=== PATIENT | male | born 1935 | race Caucasian/White ===

== ENCOUNTER → 2017-09-03 11:18 | Outpatient (CLI) | payer MEDICARE, SELFPAY ==
[2017-09-03 12:37] LABS: Absolute Lymphocyte Count 1.85 X10^3/ul (0.83-4.51); Absolute Neutrophil Count 4.7 X10^3/uL (2.0-7.7); Basophil# 0.02 X10^3/uL; Basophil% 0.3 % (0-1); Eosinophils% 2.6 % (0-5); Hematocrit 46.4 % (40-54); Hemoglobin 15.1 g/dl (13.0-16.5); Lymphocyte # 1.85 X10^3/ul (4.0); Lymphocyte % 24.2 % (19-41); Mean Corp Hgb Conc 32.5 g/gl (32-36); Mean Corpuscular Hgb 31.5 pg (27.0-32.0); Mean Corpuscular Volume 96.7 fL (80-94); Mean Platelet Vol. 9.8 fl (6.2-12.0); Monocyte# 0.88 X10^3/uL; Monocyte% 11.5 % (0-10); Neutrophil # 4.67 X10^3/uL (2.7-7.7); Neutrophil % 61.1 % (47-70); Platelet Count 253 K/mm3 (150-450); RBC Distribution Width CV 12.8 % (11.6-14.6); RBC Distribution Width SD 44.6 fl (35.1-43.9); White Blood Count 7.6 K/mm3 (4.4-11.0)
[2017-09-03 12:39] LABS: POSITIVE COUNT NO; POSITIVE DIFFERENTIAL NO; POSITIVE MORPHOLOGY NO
[2017-09-03 13:04] LABS: AST(SGOT) 12 U/L (15-37); Alanine Aminotransfer ALT/SGPT 20 U/L (16-61); Albumin, Serum 3.4 g/dL (3.2-5.0); Alkaline Phosphatase 77 U/L (45-117); Anion Gap 7 (5-15); BUN 13 mg/dL (7-18); BUN/Creat Ratio 13.4 RATIO (10-20); Calcium,Total 9.1 mg/dL (8.5-10.1); Chloride 98 mmol/L (98-107); Creatinine, Serum 0.97 mg/dL (0.70-1.30); EST Glomerular Filtration Rate 79 mL/min (>60); Est Glom Filt Rate - Afr Amer 95 mL/min (>60); Globulin 3.5 g/dL (2.2-4.2); Glucose 174 mg/dL (74-106); Protein, Total 6.9 g/dL (6.4-8.2); Sodium Level 138 mmol/L (136-145); Thyroid Stim Hormone (TSH) 2.41 uIU/mL (0.358-3.74)
== END ==
PROVIDERS: Family Provider Family Medicine Geriatric Medicine; PCP Family Medicine Geriatric Medicine; Visit Provider Family Medicine Geriatric Medicine
DX: E11.9 Type 2 diabetes mellitus without complications (principal); I10 Essential (primary) hypertension
CPT/HCPCS: 36415; 80053; 84443; 85025

== ENCOUNTER → 2017-12-12 08:08 | Outpatient (CLI) | payer MEDICARE, SELFPAY ==
[2017-12-12 09:27] LABS: AST(SGOT) 10 U/L (15-37); Alanine Aminotransfer ALT/SGPT 13 U/L (16-61); Albumin, Serum 3.2 g/dL (3.2-5.0); Alkaline Phosphatase 57 U/L (45-117); Bilirubin, Direct 0.21 mg/dL (0.00-0.30); Cholesterol 134 mg/dL (200); Globulin 3.1 g/dL (2.2-4.2); High Density Lipoprotein 44 mg/dL; Protein, Total 6.3 g/dL (6.4-8.2); Triglycerides 122 mg/dL; Very Low Density Lipoprotein 24 mg/dL (5-40)
== END ==
PROVIDERS: Family Provider Family Medicine Geriatric Medicine; PCP Family Medicine Geriatric Medicine; Visit Provider Internal Medicine Cardiovascular Disease
DX: E78.5 Hyperlipidemia, unspecified (principal); Z79.899 Other long term (current) drug therapy
CPT/HCPCS: 36415; 80061; 80076

== ENCOUNTER → 2018-03-04 14:20 | Outpatient (CLI) | payer MEDICARE, SELFPAY ==
[2018-03-04 16:13] LABS: Absolute Lymphocyte Count 1.49 X10^3/ul (0.83-4.51); Absolute Neutrophil Count 4.5 X10^3/uL (2.0-7.7); Basophil# 0.03 X10^3/uL; Basophil% 0.4 % (0-1); Eosinophil# 0.27 X10^3/uL; Eosinophils% 3.8 % (0-5); Hematocrit 47.8 % (40-54); Hemoglobin 15.6 g/dl (13.0-16.5); Lymphocyte # 1.49 X10^3/ul (4.0); Lymphocyte % 21.2 % (19-41); Mean Corp Hgb Conc 32.6 g/gl (32-36); Mean Corpuscular Hgb 30.4 pg (27.0-32.0); Mean Corpuscular Volume 93.2 fL (80-94); Monocyte# 0.73 X10^3/uL; Monocyte% 10.4 % (0-10); Neutrophil # 4.49 X10^3/uL (2.7-7.7); Neutrophil % 63.9 % (47-70); Platelet Count 240 K/mm3 (150-450); RBC Distribution Width CV 13.6 % (11.6-14.6); Red Blood Count 5.13 M/mm3 (4.6-6.2)
[2018-03-04 16:14] LABS: POSITIVE COUNT NO; POSITIVE DIFFERENTIAL NO; POSITIVE MORPHOLOGY NO
[2018-03-04 16:29] LABS: Vitamin D,25 Hydroxy 20.7 ng/mL (29.95-100.01)
[2018-03-04 16:41] LABS: AST(SGOT) 14 U/L (15-37); Alanine Aminotransfer ALT/SGPT 18 U/L (16-61); Albumin, Serum 3.5 g/dL (3.2-5.0); Alkaline Phosphatase 82 U/L (45-117); Anion Gap 11 (5-15); BUN 22 mg/dL (7-18); BUN/Creat Ratio 23.8 RATIO (10-20); Calcium,Total 9.4 mg/dL (8.5-10.1); Chloride 104 mmol/L (98-107); Creatinine, Serum 0.92 mg/dL (0.70-1.30); EST Glomerular Filtration Rate 83 mL/min (>60); Est Glom Filt Rate - Afr Amer 100 mL/min (>60); Globulin 3.4 g/dL (2.2-4.2); Glucose 110 mg/dL (74-106); Potassium 4.5 mmol/L (3.5-5.1); Protein, Total 6.9 g/dL (6.4-8.2); Sodium Level 143 mmol/L (136-145); Thyroid Stim Hormone (TSH) 2.51 uIU/mL (0.358-3.74)
== END ==
PROVIDERS: Family Provider Family Medicine Geriatric Medicine; PCP Family Medicine Geriatric Medicine; Visit Provider Family Medicine Geriatric Medicine
DX: E11.9 Type 2 diabetes mellitus without complications (principal); I10 Essential (primary) hypertension; E55.9 Vitamin D deficiency, unspecified
CPT/HCPCS: 36415; 80053; 82306; 84443; 85025

== ENCOUNTER → 2018-03-05 12:25 | Outpatient (CLI) | payer MEDICARE, SELFPAY | PROVIDERS: Family Provider Family Medicine Geriatric Medicine; PCP Family Medicine Geriatric Medicine; Visit Provider Family Medicine Geriatric Medicine | DX: R06.02 Shortness of breath (principal) | CPT/HCPCS: 93306; Q9957; A4216; C8929 ==

== ENCOUNTER → 2018-05-21 11:41 | Outpatient (CLI) | payer MEDICARE, SELFPAY ==
[2018-05-21 12:54] LABS: Absolute Lymphocyte Count 1.25 X10^3/ul (0.83-4.51); Absolute Neutrophil Count 3.3 X10^3/uL (2.0-7.7); Basophil# 0.02 X10^3/uL; Basophil% 0.4 % (0-1); Eosinophil# 0.21 X10^3/uL; Eosinophils% 3.9 % (0-5); Hemoglobin 15.8 g/dl (13.0-16.5); Lymphocyte # 1.25 X10^3/ul (4.0); Lymphocyte % 23.1 % (19-41); Mean Corp Hgb Conc 32.9 g/gl (32-36); Mean Corpuscular Hgb 30.7 pg (27.0-32.0); Mean Corpuscular Volume 93.4 fL (80-94); Mean Platelet Vol. 9.9 fl (6.2-12.0); Monocyte# 0.64 X10^3/uL; Monocyte% 11.9 % (0-10); Neutrophil # 3.26 X10^3/uL (2.7-7.7); Neutrophil % 60.3 % (47-70); POSITIVE COUNT NO; POSITIVE DIFFERENTIAL NO; POSITIVE MORPHOLOGY NO; Platelet Count 214 K/mm3 (150-450); RBC Distribution Width CV 13.5 % (11.6-14.6); RBC Distribution Width SD 44.1 fl (35.1-43.9); Red Blood Count 5.14 M/mm3 (4.6-6.2); White Blood Count 5.4 K/mm3 (4.4-11.0)
[2018-05-21 13:21] LABS: ALB/GLOB Ratio 1.1 RATIO (0.9-2.4); AST(SGOT) 15 U/L (15-37); Alanine Aminotransfer ALT/SGPT 15 U/L (16-61); Albumin, Serum 3.6 g/dL (3.2-5.0); Alkaline Phosphatase 87 U/L (45-117); Anion Gap 3 (5-15); BUN 17 mg/dL (7-18); BUN/Creat Ratio 16.8 RATIO (10-20); Calcium,Total 8.8 mg/dL (8.5-10.1); Chloride 103 mmol/L (98-107); Creatinine, Serum 1.01 mg/dL (0.70-1.30); EST Glomerular Filtration Rate 75 mL/min (>60); Est Glom Filt Rate - Afr Amer 91 mL/min (>60); Globulin 3.4 g/dL (2.2-4.2); Glucose 112 mg/dL (74-106); Potassium 4.5 mmol/L (3.5-5.1); Sodium Level 138 mmol/L (136-145); Thyroid Stim Hormone (TSH) 2.79 uIU/mL (0.358-3.74)
[2018-05-21 13:33] LABS: Vitamin D,25 Hydroxy 19.6 ng/mL (29.95-100.01)
== END ==
PROVIDERS: Family Provider Family Medicine Geriatric Medicine; PCP Family Medicine Geriatric Medicine; Visit Provider Family Medicine Geriatric Medicine
DX: E11.9 Type 2 diabetes mellitus without complications (principal); I10 Essential (primary) hypertension; E55.9 Vitamin D deficiency, unspecified
CPT/HCPCS: 36415; 80053; 82306; 84443; 85025

== ENCOUNTER → 2018-08-24 11:28 | Outpatient (CLI) | payer MEDICARE, SELFPAY ==
[2017-10-30 09:52] VITALS: BMI 23.7
[2018-08-24 13:44] LABS: Absolute Lymphocyte Count 1.54 X10^3/ul (0.83-4.51); Absolute Neutrophil Count 4.3 X10^3/uL (2.0-7.7); Basophil# 0.04 X10^3/uL; Basophil% 0.6 % (0-1); Eosinophil# 0.26 X10^3/uL; Eosinophils% 3.9 % (0-5); Hematocrit 51.5 % (40-54); Hemoglobin 16.8 g/dl (13.0-16.5); Lymphocyte # 1.54 X10^3/ul (4.0); Lymphocyte % 23.3 % (19-41); Mean Corp Hgb Conc 32.6 g/gl (32-36); Mean Corpuscular Hgb 31.6 pg (27.0-32.0); Mean Corpuscular Volume 96.8 fL (80-94); Mean Platelet Vol. 10.1 fl (6.2-12.0); Monocyte# 0.49 X10^3/uL; Monocyte% 7.4 % (0-10); Neutrophil # 4.28 X10^3/uL (2.7-7.7); Neutrophil % 64.6 % (47-70); Platelet Count 205 K/mm3 (150-450); RBC Distribution Width CV 13.3 % (11.6-14.6); RBC Distribution Width SD 46.6 fl (35.1-43.9); Red Blood Count 5.32 M/mm3 (4.6-6.2); White Blood Count 6.6 K/mm3 (4.4-11.0)
[2018-08-24 13:47] LABS: POSITIVE COUNT NO; POSITIVE DIFFERENTIAL NO; POSITIVE MORPHOLOGY NO
[2018-08-24 13:58] LABS: Vitamin D,25 Hydroxy 13.1 ng/mL (29.95-100.01)
[2018-08-24 14:02] LABS: ALB/GLOB Ratio 1.2 RATIO (0.9-2.4); AST(SGOT) 14 U/L (15-37); Alanine Aminotransfer ALT/SGPT 18 U/L (16-61); Albumin, Serum 3.8 g/dL (3.2-5.0); Alkaline Phosphatase 95 U/L (45-117); Anion Gap 8 (5-15); BUN 21 mg/dL (7-18); BUN/Creat Ratio 19.4 RATIO (10-20); Chloride 105 mmol/L (98-107); Creatinine, Serum 1.08 mg/dL (0.70-1.30); EST Glomerular Filtration Rate 69 mL/min (>60); Est Glom Filt Rate - Afr Amer 84 mL/min (>60); Globulin 3.2 g/dL (2.2-4.2); Glucose 98 mg/dL (74-106); Potassium 4.6 mmol/L (3.5-5.1); Sodium Level 144 mmol/L (136-145); Thyroid Stim Hormone (TSH) 3.17 uIU/mL (0.358-3.74); Uric Acid 7.9 mg/dL (3.5-7.2)
== END ==
PROVIDERS: Family Provider Family Medicine Geriatric Medicine; PCP Family Medicine Geriatric Medicine; Visit Provider Family Medicine Geriatric Medicine
DX: E11.9 Type 2 diabetes mellitus without complications (principal); I10 Essential (primary) hypertension; M10.9 Gout, unspecified; E55.9 Vitamin D deficiency, unspecified
CPT/HCPCS: 36415; 80053; 82306; 84443; 84550; 85025

== ENCOUNTER → 2018-11-25 13:46 | Outpatient (CLI) | payer MEDICARE, SELFPAY ==
[2018-10-26 13:51] VITALS: BMI 23.7
[2018-11-25 17:10] LABS: Vitamin D,25 Hydroxy 22.5 ng/mL (29.95-100.01)
[2018-11-25 17:14] LABS: ALB/GLOB Ratio 1.2 RATIO (0.9-2.4); AST(SGOT) 15 U/L (15-37); Alanine Aminotransfer ALT/SGPT 18 U/L (16-61); Albumin, Serum 3.9 g/dL (3.2-5.0); Alkaline Phosphatase 91 U/L (45-117); Anion Gap 4 (5-15); BUN 16 mg/dL (7-18); BUN/Creat Ratio 15.8 RATIO (10-20); Calcium,Total 9.1 mg/dL (8.5-10.1); Chloride 105 mmol/L (98-107); Creatinine, Serum 1.01 mg/dL (0.70-1.30); EST Glomerular Filtration Rate 75 mL/min (>60); Est Glom Filt Rate - Afr Amer 91 mL/min (>60); Globulin 3.3 g/dL (2.2-4.2); Glucose 75 mg/dL (74-106); Potassium 4.2 mmol/L (3.5-5.1); Protein, Total 7.2 g/dL (6.4-8.2); Sodium Level 140 mmol/L (136-145)
[2018-11-25 17:19] LABS: Absolute Lymphocyte Count 1.68 X10^3/ul (0.83-4.51); Absolute Neutrophil Count 3.4 X10^3/uL (2.0-7.7); Basophil# 0.05 X10^3/uL; Basophil% 0.8 % (0-1); Eosinophil# 0.26 X10^3/uL; Eosinophils% 4.3 % (0-5); Hematocrit 49.6 % (40-54); Hemoglobin 16.7 g/dl (13.0-16.5); Lymphocyte # 1.68 X10^3/ul (4.0); Mean Corp Hgb Conc 33.7 g/gl (32-36); Mean Corpuscular Hgb 31.7 pg (27.0-32.0); Mean Corpuscular Volume 94.3 fL (80-94); Mean Platelet Vol. 10.2 fl (6.2-12.0); Monocyte# 0.59 X10^3/uL; Monocyte% 9.8 % (0-10); Neutrophil % 56.9 % (47-70); Platelet Count 215 K/mm3 (150-450); RBC Distribution Width CV 13.1 % (11.6-14.6); RBC Distribution Width SD 44.1 fl (35.1-43.9); Red Blood Count 5.26 M/mm3 (4.6-6.2)
[2018-11-25 17:28] LABS: POSITIVE COUNT NO; POSITIVE DIFFERENTIAL NO; POSITIVE MORPHOLOGY NO
== END ==
PROVIDERS: Family Provider Family Medicine Geriatric Medicine; PCP Family Medicine Geriatric Medicine; Visit Provider Family Medicine Geriatric Medicine
DX: E11.9 Type 2 diabetes mellitus without complications (principal); I10 Essential (primary) hypertension; E55.9 Vitamin D deficiency, unspecified
CPT/HCPCS: 36415; 80053; 82306; 84443; 85025

== ENCOUNTER → 2019-03-05 09:33 | Outpatient (CLI) | payer MEDICARE, SELFPAY ==
[2018-10-26 13:51] VITALS: BMI 23.7
[2019-03-05 12:57] LABS: Absolute Lymphocyte Count 1.16 X10^3/uL (0.83-4.51); Absolute Neutrophil Count 3.5 X10^3/uL (2.0-7.7); Basophil# 0.04 X10^3/uL; Basophil% 0.7 % (0-1); Eosinophil# 0.19 X10^3/uL; Eosinophils% 3.5 % (0-5); Hematocrit 48.4 % (40-54); Hemoglobin 15.8 g/dL (13.0-16.5); Lymphocyte # 1.16 X10^3/ul (4.0); Lymphocyte % 21.3 % (19-41); Mean Corp Hgb Conc 32.6 g/dL (32-36); Mean Corpuscular Hgb 31.9 pg (27.0-32.0); Mean Corpuscular Volume 97.6 fL (80-94); Mean Platelet Vol. 9.9 fl (6.2-12.0); Monocyte# 0.57 X10^3/uL; Monocyte% 10.5 % (0-10); NRBC Flagged by Analyzer 0 % (0-5); Neutrophil # 3.47 X10^3/uL (2.7-7.7); Neutrophil % 63.6 % (47-70); Platelet Count 187 K/mm3 (150-450); RBC Distribution Width CV 12.5 % (11.6-14.6); RBC Distribution Width SD 45.1 fl (35.1-43.9); Red Blood Count 4.96 M/mm3 (4.6-6.2); White Blood Count 5.5 K/mm3 (4.4-11.0)
[2019-03-05 13:17] LABS: Vitamin D,25 Hydroxy 33.6 ng/mL (29.95-100.01)
[2019-03-05 13:24] LABS: ALB/GLOB Ratio 1.2 RATIO (0.9-2.4); AST(SGOT) 12 U/L (15-37); Alanine Aminotransfer ALT/SGPT 16 U/L (16-61); Albumin, Serum 3.7 g/dL (3.2-5.0); Alkaline Phosphatase 98 U/L (45-117); Anion Gap 4 (5-15); BUN 21 mg/dL (7-18); BUN/Creat Ratio 19.4 RATIO (10-20); Calcium,Total 8.9 mg/dL (8.5-10.1); Chloride 105 mmol/L (98-107); Creatinine, Serum 1.08 mg/dL (0.70-1.30); EST Glomerular Filtration Rate 69 mL/min (>60); Est Glom Filt Rate - Afr Amer 84 mL/min (>60); Globulin 3.2 g/dL (2.2-4.2); Glucose 102 mg/dL (74-106); Potassium 4.6 mmol/L (3.5-5.1); Protein, Total 6.9 g/dL (6.4-8.2); Sodium Level 141 mmol/L (136-145); Thyroid Stim Hormone (TSH) 2.65 uIU/mL (0.358-3.74); Uric Acid 7.4 mg/dL (3.5-7.2)
== END ==
PROVIDERS: Family Provider Family Medicine Geriatric Medicine; PCP Family Medicine Geriatric Medicine; Visit Provider Family Medicine Geriatric Medicine
DX: E11.9 Type 2 diabetes mellitus without complications (principal); I10 Essential (primary) hypertension; E55.9 Vitamin D deficiency, unspecified; M10.9 Gout, unspecified
CPT/HCPCS: 36415; 80053; 82306; 84443; 84550; 85025

== ENCOUNTER → 2019-09-03 10:42 | Outpatient (CLI) | payer MEDICARE, SELFPAY ==
[2019-05-05 11:07] VITALS: BMI 22.5
[2019-09-03 13:07] LABS: Absolute Lymphocyte Count 1.23 X10^3/uL (0.83-4.51); Absolute Neutrophil Count 3.6 X10^3/uL (2.0-7.7); Basophil# 0.04 X10^3/uL; Basophil% 0.7 % (0-1); Eosinophil# 0.22 X10^3/uL; Eosinophils% 3.9 % (0-5); Hematocrit 47.5 % (40-54); Hemoglobin 15.6 g/dL (13.0-16.5); Lymphocyte # 1.23 X10^3/ul (4.0); Lymphocyte % 21.8 % (19-41); Mean Corp Hgb Conc 32.8 g/dL (32-36); Mean Corpuscular Hgb 31.6 pg (27.0-32.0); Mean Corpuscular Volume 96.3 fL (80-94); Mean Platelet Vol. 9.9 fl (6.2-12.0); Monocyte# 0.55 X10^3/uL; Monocyte% 9.8 % (0-10); NRBC Flagged by Analyzer 0 % (0-5); Neutrophil # 3.58 X10^3/uL (2.7-7.7); Neutrophil % 63.4 % (47-70); Platelet Count 190 K/mm3 (150-450); RBC Distribution Width CV 12.5 % (11.6-14.6); RBC Distribution Width SD 43.9 fl (35.1-43.9); Red Blood Count 4.93 M/mm3 (4.6-6.2); White Blood Count 5.6 K/mm3 (4.4-11.0)
[2019-09-03 13:25] LABS: ALB/GLOB Ratio 1.1 RATIO (0.9-2.4); AST(SGOT) 14 U/L (15-37); Alanine Aminotransfer ALT/SGPT 18 U/L (16-61); Albumin, Serum 3.6 g/dL (3.2-5.0); Alkaline Phosphatase 76 U/L (45-117); Anion Gap 4 (5-15); BUN 18 mg/dL (7-18); BUN/Creat Ratio 16.8 RATIO (10-20); Calcium,Total 9.1 mg/dL (8.5-10.1); Chloride 105 mmol/L (98-107); Creatinine, Serum 1.07 mg/dL (0.70-1.30); EST Glomerular Filtration Rate 70 mL/min (>60); Est Glom Filt Rate - Afr Amer 85 mL/min (>60); Globulin 3.3 g/dL (2.2-4.2); Glucose 79 mg/dL (74-106); Potassium 4.6 mmol/L (3.5-5.1); Protein, Total 6.9 g/dL (6.4-8.2); Sodium Level 141 mmol/L (136-145); Thyroid Stim Hormone (TSH) 3.08 uIU/mL (0.358-3.74)
== END ==
PROVIDERS: PCP Family Medicine Geriatric Medicine; Visit Provider Family Medicine Geriatric Medicine
DX: E11.9 Type 2 diabetes mellitus without complications (principal); I10 Essential (primary) hypertension; E55.9 Vitamin D deficiency, unspecified
CPT/HCPCS: 36415; 80053; 82306; 84443; 85025

== ENCOUNTER → 2020-03-06 10:38 | Outpatient (CLI) | payer MEDICARE, SELFPAY ==
[2019-12-09 14:19] VITALS: BMI 22.0
[2020-03-06 12:31] LABS: Absolute Lymphocyte Count 1.29 X10^3/uL (0.83-4.51); Absolute Neutrophil Count 4.2 X10^3/uL (2.0-7.7); Basophil# 0.05 X10^3/uL; Basophil% 0.8 % (0-1); Eosinophil# 0.18 X10^3/uL; Eosinophils% 2.8 % (0-5); Hematocrit 48.2 % (40-54); Hemoglobin 15.9 g/dL (13.0-16.5); Lymphocyte # 1.29 X10^3/ul (4.0); Mean Corpuscular Hgb 32.5 pg (27.0-32.0); Mean Corpuscular Volume 98.6 fL (80-94); Mean Platelet Vol. 10.1 fl (6.2-12.0); Monocyte# 0.72 X10^3/uL; Monocyte% 11.2 % (0-10); NRBC Flagged by Analyzer 0 % (0-5); Neutrophil # 4.19 X10^3/uL (2.7-7.7); Neutrophil % 64.9 % (47-70); Platelet Count 215 K/mm3 (150-450); RBC Distribution Width CV 12.3 % (11.6-14.6); RBC Distribution Width SD 44.6 fl (35.1-43.9); Red Blood Count 4.89 M/mm3 (4.6-6.2); White Blood Count 6.5 K/mm3 (4.4-11.0)
[2020-03-06 12:44] LABS: Vitamin D,25 Hydroxy 43.6 ng/mL
[2020-03-06 12:55] LABS: ALB/GLOB Ratio 1.3 RATIO (0.9-2.4); AST(SGOT) 11 U/L (15-37); Alanine Aminotransfer ALT/SGPT 15 U/L (16-61); Albumin, Serum 3.9 g/dL (3.2-5.0); Alkaline Phosphatase 86 U/L (45-117); Anion Gap 4 (5-15); BUN 17 mg/dL (7-18); BUN/Creat Ratio 13.6 RATIO (10-20); Calcium,Total 9.4 mg/dL (8.5-10.1); Chloride 106 mmol/L (98-107); Creatinine, Serum 1.25 mg/dL (0.70-1.30); EST Glomerular Filtration Rate 58 mL/min (>60); Est Glom Filt Rate - Afr Amer 71 mL/min (>60); Globulin 3.1 g/dL (2.2-4.2); Glucose 129 mg/dL (74-106); Potassium 4.4 mmol/L (3.5-5.1); Sodium Level 142 mmol/L (136-145); Thyroid Stim Hormone (TSH) 3.06 uIU/mL (0.358-3.74); Uric Acid 7.2 mg/dL (3.5-7.2)
== END ==
PROVIDERS: PCP Family Medicine Geriatric Medicine; Visit Provider Family Medicine Geriatric Medicine
DX: E11.9 Type 2 diabetes mellitus without complications (principal); E55.9 Vitamin D deficiency, unspecified; I10 Essential (primary) hypertension; M10.9 Gout, unspecified
CPT/HCPCS: 36415; 80053; 82306; 84443; 84550; 85025

== ENCOUNTER → 2020-04-24 12:14 | Outpatient (CLI) | payer MEDICARE, SELFPAY ==
[2019-12-09 14:19] VITALS: BMI 22.0
[2020-04-24 12:44] LABS: Absolute Lymphocyte Count 0.57 X10^3/uL (0.83-4.51); Basophil# 0.03 X10^3/uL; Basophil% 0.7 % (0-1); Eosinophil# 0.13 X10^3/uL; Hematocrit 42.3 % (40-54); Hemoglobin 13.8 g/dL (13.0-16.5); Lymphocyte # 0.57 X10^3/ul (4.0); Lymphocyte % 13.2 % (19-41); Mean Corp Hgb Conc 32.6 g/dL (32-36); Mean Corpuscular Volume 95.1 fL (80-94); Mean Platelet Vol. 9.3 fl (6.2-12.0); Monocyte# 0.53 X10^3/uL; Monocyte% 12.2 % (0-10); NRBC Flagged by Analyzer 0 % (0-5); Neutrophil # 3.03 X10^3/uL (2.7-7.7); POSITIVE DIFFERENTIAL YES; Platelet Count 261 K/mm3 (150-450); RBC Distribution Width SD 41.8 fl (35.1-43.9); Red Blood Count 4.45 M/mm3 (4.6-6.2); White Blood Count 4.3 K/mm3 (4.4-11.0)
--- NOTE | 2020-04-24 12:48 | CT_ITS ---
STUDY: CT BRAIN WITHOUT CONTRAST REASON FOR EXAM: Male, 84 years old. CONFUSION, DELIRIUM RADIATION DOSAGE (If Supplied By Facility): CTDIvol = ( 44.99 ) mGy, DLP = ( 796.11 ) mGycm TECHNIQUE: Transaxial CT imaging of the brain was performed without administration of intravenous contrast material. Individualized dose optimization techniques were used for this CT. COMPARISON: No relevant priors. FINDINGS: Normal soft tissue structures. Normal calvarium. There is moderate cerebral atrophy with widening of the extra-axial spaces and ventricular dilatation. There are areas of decreased attenuation within the white matter tracts of the supratentorial brain, consistent with microvascular disease changes. Normal basal ganglia and thalami. Normal brainstem. Normal cerebellum. There is no intracranial hemorrhage. There are no findings of an acute ischemic infarction. Normal visualized paranasal sinuses. CT/Brain/Head without Contrast IMPRESSION: Chronic involutional changes of the brain. Electronically Signed: Chuckie Smith, at 14:39 EDT , Service support ,
--- NOTE | 2020-04-24 13:00 | RAD_ITS ---
STUDY: X-RAY CHEST REASON FOR EXAM: Male, 84 years old. Bronchitis TECHNIQUE: PA and lateral views of the chest. COMPARISON: Comparison is made with prior study dated 04/11/2017. FINDINGS: Hyperinflation. Decreased bilateral bronchovascular markings in both lungs in keeping with emphysematous change. There is no demonstrated pleural abnormality. Sternal cerclage wires and vascular clips are present from a prior sternotomy and coronary artery bypass graft procedure (CABG). Normal mediastinum and aaron. There is prominence of the pulmonary hilar arteries without peripheral pulmonary vascular congestion, suggesting pulmonary hypertension. There is atherosclerotic calcification of the aortic arch with tortuosity. Normal visualized thoracic spine. There is degenerative osteoarthritis of the bilateral shoulders. There is no demonstrated abnormality of the visualized soft tissue structures of the upper abdomen. RAD/Chest PA and Lateral IMPRESSION: Hyperinflation and diffuse emphysematous changes. Stable examination. Electronically Signed: Chuckie Smith, at 13:55 EDT , Service support ,
--- NOTE | 2020-04-24 13:00 | RAD_ITS ---
STUDY: X-RAY - ABDOMEN/PELVIS REASON FOR EXAM: Male, 84 years old. Fecal impaction TECHNIQUE: Single AP view of the abdomen / pelvis. COMPARISON: None. FINDINGS: Normal visualized lung bases. There is an abundance of fecal material throughout the colon. Multiple calcified splenic granulomas. Endoluminal stent grafting is seen in the abdominal aorta and both common iliac arteries. Embolization coils are seen in the right hemipelvis. There are degenerative changes of the visualized lumbar spine. Osteoarthritis of both hip joints. RAD/Abdomen Single View IMPRESSION: Large amount of fecal material is seen in the colon. Electronically Signed: Chuckie Smith, at 13:58 EDT , Service support ,
[2020-04-24 13:10] LABS: Differential Indicated SCAN CRITERIA MET
[2020-04-24 13:20] LABS: Differential Comment SCANNED
[2020-04-24 13:21] LABS: ALB/GLOB Ratio 0.7 RATIO (0.9-2.4); AST(SGOT) 16 U/L (15-37); Alanine Aminotransfer ALT/SGPT 30 U/L (16-61); Albumin, Serum 2.4 g/dL (3.2-5.0); Alkaline Phosphatase 57 U/L (45-117); Anion Gap 4 (5-15); BUN 16 mg/dL (7-18); BUN/Creat Ratio 15.5 RATIO (10-20); Calcium,Total 8.4 mg/dL (8.5-10.1); Chloride 101 mmol/L (98-107); Creatinine, Serum 1.03 mg/dL (0.70-1.30); EST Glomerular Filtration Rate 73 mL/min (>60); Est Glom Filt Rate - Afr Amer 88 mL/min (>60); Globulin 3.5 g/dL (2.2-4.2); Glucose 286 mg/dL (74-106); Potassium 4.3 mmol/L (3.5-5.1); Protein, Total 5.9 g/dL (6.4-8.2); Sodium Level 138 mmol/L (136-145)
[2020-04-25 14:03] LABS: Pathologist Review Reviewed
== END ==
PROVIDERS: PCP Family Medicine Geriatric Medicine; Referring Provider Family Medicine Geriatric Medicine; Visit Provider Family Medicine Geriatric Medicine
DX: J41.0 Simple chronic bronchitis (principal); K56.41 Fecal impaction; F29 Unspecified psychosis not due to a substance or known physiological condition; F05 Delirium due to known physiological condition; N39.0 Urinary tract infection, site not specified; R53.83 Other fatigue
CPT/HCPCS: 36415; 70450; 71046; 74018; 80053; 84443; 85025; 87086; 87088

== ENCOUNTER → 2020-05-03 15:46 | Outpatient (CLI) | payer MEDICARE, SELFPAY ==
[2019-12-09 14:19] VITALS: BMI 22.0
[2020-05-03 16:39] LABS: Absolute Lymphocyte Count 1.01 X10^3/uL (0.83-4.51); Absolute Neutrophil Count 4.4 X10^3/uL (2.0-7.7); Basophil# 0.07 X10^3/uL; Eosinophil# 0.13 X10^3/uL; Eosinophils% 1.9 % (0-5); Hematocrit 43.3 % (40-54); Lymphocyte # 1.01 X10^3/ul (4.0); Lymphocyte % 14.8 % (19-41); Mean Corp Hgb Conc 32.3 g/dL (32-36); Mean Platelet Vol. 9.3 fl (6.2-12.0); Monocyte# 1.11 X10^3/uL; Monocyte% 16.2 % (0-10); NRBC Flagged by Analyzer 0 % (0-5); Neutrophil # 4.42 X10^3/uL (2.7-7.7); Neutrophil % 64.6 % (47-70); Platelet Count 417 K/mm3 (150-450); RBC Distribution Width CV 12.3 % (11.6-14.6); RBC Distribution Width SD 42.7 fl (35.1-43.9); Red Blood Count 4.51 M/mm3 (4.6-6.2); White Blood Count 6.8 K/mm3 (4.4-11.0)
[2020-05-03 17:02] LABS: Anion Gap 3 (5-15); BUN 18 mg/dL (7-18); BUN/Creat Ratio 18.3 RATIO (10-20); Calcium,Total 9.5 mg/dL (8.5-10.1); Chloride 103 mmol/L (98-107); Creatinine, Serum 0.98 mg/dL (0.70-1.30); EST Glomerular Filtration Rate 77 mL/min (>60); Est Glom Filt Rate - Afr Amer 93 mL/min (>60); Glucose 221 mg/dL (74-106); Potassium 4.7 mmol/L (3.5-5.1); Sodium Level 141 mmol/L (136-145)
== END ==
PROVIDERS: PCP Family Medicine Geriatric Medicine; Visit Provider Family Medicine Geriatric Medicine
DX: F05 Delirium due to known physiological condition (principal)
CPT/HCPCS: 36415; 80048; 85025

== ENCOUNTER → 2020-09-04 10:16 | Outpatient (CLI) | payer MEDICARE, SELFPAY ==
[2019-12-09 14:19] VITALS: BMI 22.0
[2020-09-04 11:06] LABS: Absolute Lymphocyte Count 0.98 X10^3/uL (0.83-4.51); Absolute Neutrophil Count 4.3 X10^3/uL (2.0-7.7); Basophil# 0.04 X10^3/uL; Basophil% 0.6 % (0-1); Eosinophil# 0.26 X10^3/uL; Eosinophils% 4.2 % (0-5); Hematocrit 43.7 % (40-54); Hemoglobin 13.6 g/dL (13.0-16.5); Lymphocyte # 0.98 X10^3/ul (4.0); Lymphocyte % 15.8 % (19-41); Mean Corp Hgb Conc 31.1 g/dL (32-36); Mean Corpuscular Hgb 28.6 pg (27.0-32.0); Mean Platelet Vol. 9.5 fl (6.2-12.0); Monocyte# 0.63 X10^3/uL; Monocyte% 10.2 % (0-10); NRBC Flagged by Analyzer 0 % (0-5); Neutrophil # 4.26 X10^3/uL (2.7-7.7); Neutrophil % 68.9 % (47-70); Platelet Count 302 K/mm3 (150-450); RBC Distribution Width CV 13.2 % (11.6-14.6); RBC Distribution Width SD 44.4 fl (35.1-43.9); Red Blood Count 4.75 M/mm3 (4.6-6.2); White Blood Count 6.2 K/mm3 (4.4-11.0)
[2020-09-04 11:41] LABS: ALB/GLOB Ratio 0.7 RATIO (0.9-2.4); AST(SGOT) 14 U/L (15-37); Alanine Aminotransfer ALT/SGPT 16 U/L (16-61); Albumin, Serum 2.9 g/dL (3.2-5.0); Alkaline Phosphatase 93 U/L (45-117); Anion Gap 5 (5-15); BUN 15 mg/dL (7-18); BUN/Creat Ratio 15.8 RATIO (10-20); Calcium,Total 9.4 mg/dL (8.5-10.1); Chloride 104 mmol/L (98-107); Creatinine, Serum 0.95 mg/dL (0.70-1.30); EST Glomerular Filtration Rate 80 mL/min (>60); Est Glom Filt Rate - Afr Amer 97 mL/min (>60); Globulin 3.9 g/dL (2.2-4.2); Glucose 229 mg/dL (74-106); Potassium 4.9 mmol/L (3.5-5.1); Protein, Total 6.8 g/dL (6.4-8.2); Sodium Level 140 mmol/L (136-145); Thyroid Stim Hormone (TSH) 2.66 uIU/mL (0.358-3.74); Uric Acid 5.7 mg/dL (3.5-7.2)
== END ==
PROVIDERS: PCP Family Medicine Geriatric Medicine; Visit Provider Family Medicine Geriatric Medicine
DX: E11.9 Type 2 diabetes mellitus without complications (principal); I10 Essential (primary) hypertension; M10.9 Gout, unspecified; E55.9 Vitamin D deficiency, unspecified
CPT/HCPCS: 36415; 80053; 82306; 84443; 84550; 85025

== ENCOUNTER 2020-11-25 14:33 | Emergency (ER) | payer MEDICARE, SELFPAY ==
[2019-12-09 14:19] VITALS: BMI 22.0
[2020-11-25 14:34] VITALS: BP 149/66; PULSE 67; RESP 17; TEMP 36.3; O2SAT 90; BMI 20.7
[2020-11-25] MEDS: HYDROcodone Bitartrate/Apap 5/325 Tablet PO (14:55)
--- NOTE | 2020-11-25 14:55 | RAD_ITS ---
EXAM: XR LEFT RIBS AND AP CHEST, 3 OR MORE VIEWS : 1934 CLINICAL INDICATION: fall, left anterior mid-low rib pain TECHNIQUE: Frontal and oblique views of the left ribs and frontal view of the chest. This report was created using [employer] report generation technology. COMPARISON: None. FINDINGS: LUNGS AND PLEURAL SPACES: The lungs are mildly hyperinflated. No pneumothorax. No effusion. HEART: Unremarkable. Cardiac silhouette not enlarged. MEDIASTINUM: Central airways and mediastinal contour are unremarkable. BONES/JOINTS: Appears to be a nondisplaced fracture of the left seventh rib RAD/Ribs Uni Min 3V w/PA Chest IMPRESSION: 1. Pulmonary hyperinflation with no acute pulmonary abnormality. 2. Nondisplaced fracture of the left seventh rib. at 1538 Reported and signed by: Diallo Keller MD Electronically Signed: Diallo Keller MD at 15:37 EDT Tel , Service support ,
--- NOTE | 2020-11-25 15:05 | ED.VIS.FALL ---
HPI HPI - Fall History of Present Illness Chief Complaint: Fall Informant: patient and family Occured/Mechanism Occurred: Today Usually ambulates: - (With standby assistance) Pain/Injury Pain Location: chest Quality of Pain: Aching Current Severity: Mild Maximum Severity: Moderate Worsened by: Movement, deep breath Narrative Narrative: Patient was walking with assistance of family today. In the kitchen he became weak and before they could get him into a chair he fell striking his left anterior ribs against a plastic trash can. Is complaining of pain to this area. Patient is on home oxygen as needed at home. States is not been using it as much the last several days. His normal oxygen saturations around 91 to 92% on room air. [facility] Medical History (Updated 11/25/20 @ 17:[address] 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 COPD (chronic obstructive pulmonary disease) Emphysema, unspecified Essential hypertension Glaucoma History of DVT (deep vein thrombosis) History of tobacco use HLD (hyperlipidemia) HTN (hypertension) Old myocardial infarction SCOTTIE (obstructive sleep apnea) Paroxysmal atrial fibrillation Prostate cancer Rheumatoid arthritis Sebaceous cyst Type 2 diabetes mellitus Home Medications nitroglycerin 0.4 mg sublingual tablet 0.4 mg SUBLINGUAL Q5M PRN 09/17/17 [History Last Taken Unknown] dutasteride 0.5 mg capsule 0.5 mg PO QDAY 09/18/17 [History Last Taken Unknown] brimonidine 0.2 % eye drops 1 drp OPHTHALMIC BID ml 10/30/17 [History Last Taken Unknown] budesonide-formoterol HFA 160 mcg-4.5 mcg/actuation aerosol inhaler 2 puff INHALATION QDAY g 10/30/17 [History Last Taken Unknown] latanoprost 0.005 % eye drops 1 drp OPHTHALMIC QPM 10/30/17 [History Last Taken Unknown] timolol 0.5 % eye drops 1 drp OPHTHALMIC BID 10/30/17 [History Last Taken Unknown] cholecalciferol (vitamin D3) 25 mcg (1,000 unit) tablet 1,000 unit PO DAILY 10/26/18 [History Last Taken Unknown] glimepiride 4 mg tablet 2 mg PO DAILY tab 10/26/18 [History Last Taken Unknown] atorvastatin 40 mg tablet 40 mg PO QHS #90 tab 10/29/19 [Rx Last Taken Unknown] furosemide 40 mg tablet 40 mg PO DAILY #30 tab 10/29/19 [Rx Last Taken Unknown] potassium chloride 20 mEq tablet,extended release 40 meq PO QDAY #180 tab 12/29/19 [Rx Last Taken Unknown] diltiazem HCl 120 mg capsule,extended release 24 hr 120 mg PO DAILY #90 cap 08/22/20 [Rx Last Taken Unknown] metoprolol tartrate 50 mg tablet 50 mg PO BID #180 ea 08/22/20 [Rx Last Taken Unknown] apixaban 5 mg tablet See Rx Instructions .ROUTE .COMPLEX #180 tablet 10/17/20 [Rx Last Taken Unknown] hydrocodone-acetaminophen 1 tab PO Q6H PRN 3 Days #10 tab 11/25/20 [Rx Last Taken Unknown] Allergy/AdvReac Type Severity Reaction Status Date / Time Iodinated Contrast Media Allergy Hives Verified 12/09/19 14:22 [CONTRASTS] amoxicillin [From Augmentin] AdvReac Upset Verified 12/09/19 14:22 Stomach clavulanic acid AdvReac Upset Verified 12/09/19 14:22 [From Augmentin] Stomach Family History Mother CAD (coronary artery disease) Sister Diabetes Surgical History Aortocoronary bypass status (~07/27/97) History of abdominal aortic aneurysm repair (~07/15/07) History of abdominal aortic aneurysm repair (~2007) Hx of appendectomy Presence of stent in coronary artery (~04/25/10) Social History Smoking Status: Unknown if ever smoked alcohol intake: never substance use type: does not use ROS ROS ED Constitutional Constitutional ED: Denies chills or fever(s) Eyes Eyes: Denies change in vision ENT ENT ED: Denies sore throat Cardiovascular Cardiovascular: Reports chest pain Respiratory/Chest Respiratory/Chest: Denies cough or dyspnea Gastrointestinal Gastrointestinal: Denies abdominal pain, diarrhea, nausea or vomiting Genitourinary Genitourinary ED: Denies dysuria Musculoskeletal Musculoskeletal: Denies back pain Integumentary Denies rash Neurologic Neurologic: Reports weakness; Denies headache(s) Psychiatric Psychiatric: Denies anxiety or depression Endocrine Endocrinology: Denies polydipsia or polyuria Allergic/Immunologic Allergic/Immunologic ED: Denies urticaria EXAM Physical Exam Const Vital Signs: 11/25/20 14:34 11/25/20 15:21 11/25/20 17:12 Temperature 97.3 F L Temperature Source Temporal Pulse Rate 67 67 Respiratory Rate 17 16 Respiratory Effort Non-Labored Respiratory Depth Normal Respiratory Pattern Normal Blood Pressure 149/66 H 159/67 H Blood Pressure Mean 93 Pulse Ox 90 96 Oxygen Delivery Method Room Air Room Air Positive well nourished and well developed General Appearance ED: well developed HEENT Reports normocephalic and head/scalp atraumatic Eyes PERRL and EOMs intact bilaterally Neck supple Chest Wall inspection of chest normal Chest Narrative: Tenderness palpation left anterior mid ribs. No overlying abrasions or ecchymosis. No crepitus. Resp normal respiratory effort and clear to auscultation bilaterally Cardio regular rate and regular rhythm GI normal to inspection, nondistended, normoactive bowel sounds Palpation: soft Back/Spine no CVA tenderness Extremity normal to inspection Neuro oriented x3 and no sensory deficits noted Sensorium / Orientation: alert Psych mental status grossly normal Skin no rashes or lesions noted MDM MDM MDM Narrative Medical decision making narrative: Patient is given 1 tab of [place] for pain. Radiography Diagnostic Testing: Radiology Impression Ribs w/Chest X-Ray 11/25/20 14:55 IMPRESSION: 1. Pulmonary hyperinflation with no acute pulmonary abnormality. 2. Nondisplaced fracture of the left seventh rib. at 1538 Reported and signed by: Diallo Keller MD Electronically Signed: Diallo Keller MD at 15:37 EDT Tel , Service support , Treatment and Re-Evaluation Comments:: Rib series with chest x-ray obtained. No obvious pneumothorax. Questionable rib fracture. Radiologist interpretation is reviewed and they do feel the patient is a nondisplaced fracture of the left seventh rib. Test results discussed with patient and family at bedside. He will be given [place] at home for pain. He was warned about sedating and constipating side effects. Patient's O2 sats are in the low 90s here, at baseline per family report. Discharge Plan Triage Chief Complaint: Fall ED Provider: Glo Burton Dx/Rx/DC Orders Clinical Impression: Fracture of rib Instructions: ED Rib Fracture Prescriptions: New hydrocodone-acetaminophen 5-325 mg tablet 1 tab PO Q6H PRN (Reason: pain) 3 Days Qty: 10 RF: 0 No Action budesonide-formoterol [Symbicort] 160-4.5 mcg/actuation HFA aerosol inhaler 2 puff INHALATION QDAY RF: 0 latanoprost 0.005 % drops 1 drp OPHTHALMIC QPM RF: 0 timolol 0.5 % drops 1 drp OPHTHALMIC BID RF: 0 brimonidine 0.2 % drops 1 drp OPHTHALMIC BID RF: 0 glimepiride 4 mg tablet 2 mg PO DAILY RF: 0 dutasteride 0.5 mg capsule 0.5 mg PO QDAY RF: 0 nitroglycerin 0.4 mg tablet, sublingual 0.4 mg SUBLINGUAL Q5M PRNRF: 0 cholecalciferol (vitamin D3) 1,000 unit tablet 1,000 unit PO DAILY RF: 0 atorvastatin 40 mg tablet 40 mg PO QHS Qty: 90 RF: 3 furosemide 40 mg tablet 40 mg PO DAILY Qty: 30 RF: 11 potassium chloride 20 mEq tablet extended release 40 meq PO QDAY Qty: 180 RF: 3 diltiazem HCl 120 mg capsule,extended release 24hr 120 mg PO DAILY Qty: 90 RF: 3 metoprolol tartrate 50 mg tablet 50 mg PO BID Qty: 180 RF: 3 apixaban [Eliquis] 5 mg tablet See Rx Instructions .ROUTE .COMPLEX Qty: 180 RF: 4 Primary Care Provider: Lazarus Billings Chi Referrals: Lazarus Billings Chi, MD [Primary Care Provider] - 1 Week Disposition Disposition: Home, self care Discharge Date/Time: 11/25/20 17:13
[2020-11-25 17:12] VITALS: BP 159/67; PULSE 67; RESP 16; O2SAT 96
== END 2020-11-25 17:13 | disposition home or self-care (01) ==
PROVIDERS: Emergency Provider Emergency Medicine; PCP Family Medicine Geriatric Medicine
DX: S22.32XA Fracture of one rib, left side, initial encounter for closed fracture (principal); W04.XXXA Fall while being carried or supported by other persons, initial encounter; Y93.01 Activity, walking, marching and hiking; Y92.000 Kitchen of unspecified non-institutional (private) residence as the place of occurrence of the external cause; Y99.9 Unspecified external cause status; I10 Essential (primary) hypertension; I25.810 Atherosclerosis of coronary artery bypass graft(s) without angina pectoris; I48.0 Paroxysmal atrial fibrillation; E11.9 Type 2 diabetes mellitus without complications; M06.9 Rheumatoid arthritis, unspecified; E78.5 Hyperlipidemia, unspecified; H40.9 Unspecified glaucoma; G47.33 Obstructive sleep apnea (adult) (pediatric); Z99.81 Dependence on supplemental oxygen; Z79.01 Long term (current) use of anticoagulants; Z79.84 Long term (current) use of oral hypoglycemic drugs; Z79.899 Other long term (current) drug therapy; I25.2 Old myocardial infarction; Z86.718 Personal history of other venous thrombosis and embolism; Z85.46 Personal history of malignant neoplasm of prostate; Z87.891 Personal history of nicotine dependence
CPT/HCPCS: 71101; 99282

== ENCOUNTER 2020-12-03 12:33 | Inpatient (IN) | payer MEDICARE, SELFPAY ==
[2020-12-03] VITALS (17 sets, daily range): BP systolic 104–127; BP diastolic 54–90; PULSE 62–75; RESP 12–28; TEMP 36.4–36.6; O2SAT 86–98; BMI 19.3; BMI 19.1
--- NOTE | 2020-12-03 13:00 | EKG12_ITS ---
Test Reason : SOB Blood Pressure : / mmHG Vent. Rate : 066 BPM Atrial Rate : 066 BPM P-R Int : 176 ms QRS Dur : 104 ms QT Int : 426 ms P-R-T Axes : 065 034 071 degrees QTc Int : 446 ms Normal sinus rhythm with sinus arrhythmia Anterior infarct , age undetermined Abnormal ECG Confirmed by LEONIDES VALENCIA, DOTTIE ([id number]), metropolitan editor JOHN MALIN ([id number]) on 12/05/2020 9:08:31 AM Referred By: Tamera Noriega Confirmed By:DOTTIE COYLE MD
--- NOTE | 2020-12-03 13:00 | RAD_ITS ---
EXAM: XR CHEST, 1 VIEW CLINICAL INDICATION: Cough. TECHNIQUE: Frontal view of the chest. This report was created using [employer] report generation technology. COMPARISON: 11/25/2020. FINDINGS: LUNGS AND PLEURAL SPACES: Mild pulmonary hyperinflation with bullous emphysema in the right upper lobe. Suspicious interstitial infiltrates in the lower lobes and possibly in the left midlung. No pneumothorax. No effusion. HEART: Unremarkable. Cardiac silhouette not enlarged. MEDIASTINUM: Central airways and mediastinal contour are unremarkable. BONES/JOINTS: Degenerative osteoarthrosis of both glenohumeral articulations are unchanged. SOFT TISSUES: Unremarkable. RAD/Chest 1 View (Portable) IMPRESSION: 1. Suspicious interstitial infiltrates in the lung bases and possibly in the left midlung. HRCT chest will be helpful for further clarification if Covid 19 pneumonia is a clinical consideration. 2. COPD with bullous emphysema in the right upper lobe is unchanged. Electronically Signed: Ward Khalil MD at 15:31 EDT , Service support ,
[2020-12-03] MEDS: Ipratropium/Albuterol Sulfate 3 ML AMPUL.NEB INHALATION ×3 (13:15→22:13)
[2020-12-03 13:23] LABS: Absolute Neutrophil Count 5.5 X10^3/uL (2.0-7.7); Basophil# 0.04 X10^3/uL; Basophil% 0.5 % (0-1); Eosinophil# 0.12 X10^3/uL; Eosinophils% 1.6 % (0-5); Hematocrit 44.7 % (40-54); Hemoglobin 13.6 g/dL (13.0-16.5); Mean Corp Hgb Conc 30.4 g/dL (32-36); Mean Corpuscular Hgb 28.9 pg (27.0-32.0); Mean Corpuscular Volume 95.1 fL (80-94); Mean Platelet Vol. 9.4 fl (6.2-12.0); Monocyte# 0.91 X10^3/uL; Monocyte% 12.1 % (0-10); NRBC Flagged by Analyzer 0 % (0-5); Neutrophil # 5.53 X10^3/uL (2.7-7.7); Neutrophil % 73.4 % (47-70); Platelet Count 253 K/mm3 (150-450); RBC Distribution Width CV 14.3 % (11.6-14.6); White Blood Count 7.5 K/mm3 (4.4-11.0)
[2020-12-03 13:37] LABS: International Normalized Ratio 1.6; Prothrombin Time (Protime)PT. 18.7 SECONDS (11.7-14.9)
[2020-12-03 13:39] LABS: Partial Thromboplast Time 50.7 Seconds (24.1-36.2)
[2020-12-03 13:42] LABS: ALB/GLOB Ratio 0.9 RATIO (0.9-2.4); AST(SGOT) 13 U/L (15-37); Alanine Aminotransfer ALT/SGPT 14 U/L (16-61); Albumin, Serum 3.1 g/dL (3.2-5.0); Alkaline Phosphatase 77 U/L (45-117); Anion Gap 5 (5-15); BUN 21 mg/dL (7-18); BUN/Creat Ratio 22.4 RATIO (10-20); Calcium,Total 8.9 mg/dL (8.5-10.1); Chloride 107 mmol/L (98-107); Creatinine, Serum 0.94 mg/dL (0.70-1.30); EST Glomerular Filtration Rate 81 mL/min (>60); Est Glom Filt Rate - Afr Amer 98 mL/min (>60); Estimated Creatinine Clearance 44.52 ml/min; Globulin 3.6 g/dL (2.2-4.2); Glucose 153 mg/dL (74-106); Potassium 4.2 mmol/L (3.5-5.1); Protein, Total 6.7 g/dL (6.4-8.2); Sodium Level 142 mmol/L (136-145)
[2020-12-03 13:48] LABS: Lactic Acid 1.4 mmol/L (0.4-1.9)
[2020-12-03] MEDS: 0.9% Normal Saline 1,000 ML 150 ML IV (13:50)
[2020-12-03 14:14] LABS: Bacteria 0 SEEN /hpf (None Seen); Mucous, Urine 0 SEEN /hpf (<or=2+); Squamous Epithelial Cells - UA 0 SEEN /hpf (0-5); White Blood Cells 0 SEEN /hpf (0-5)
[2020-12-03 14:16] LABS: Color, Urine Yellow (Yellow); Glucose, Dipstick 250 mg/dl (Normal); Ketone-Dipstick 5 mg/dl (Negative); Leukocyte Esterase-Dipstick 25 /ul (Negative); Nitrite-Dipstick Negative (Negative); Occult Blood-Urine 150 /ul (Negative); Protein-Dipstick 15 mg/dl (Negative); Specific Gravity, Urine 1.025 (1.002-1.030); Urine Clarity Clear (Clear); Urine Urobilinogen 1 mg/dl (Normal)
[2020-12-03 14:21] LABS: Urine Bilirubin Dipstick 1 mg/dL (Negative)
[2020-12-03] MEDS: Ceftriaxone 1 GM/50 ML BAG IV (14:21)
[2020-12-03 14:22] LABS: Red Blood Cells-Urine 10-25 SEEN /hpf (0-5)
--- NOTE | 2020-12-03 14:22 | EDS_ITS ---
HPI History of Present Illness Chief Complaint: Shortness of Breath Informant: patient and spouse/S.O. Narrative Narrative: 85-year-old male history of COPD and A. fib/coronary artery disease presents the emergency department out of concern for pneumonia. Family states that 8 days ago he fell and broke a rib on the left. He has subsequently developed a very moist cough and is dyspneic. He has gotten very frail. No reported fevers. Family has had to reapply oxygen. He had been doing well enough that he was not using his oxygen very much. [facility] Medical History (Updated 12/03/20 @ 14:[address] 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 COPD (chronic obstructive pulmonary disease) Emphysema, unspecified Essential hypertension Glaucoma History of DVT (deep vein thrombosis) History of tobacco use HLD (hyperlipidemia) HTN (hypertension) Old myocardial infarction SCOTTIE (obstructive sleep apnea) Paroxysmal atrial fibrillation Prostate cancer Rheumatoid arthritis Sebaceous cyst Type 2 diabetes mellitus Home Medications nitroglycerin 0.4 mg sublingual tablet 0.4 mg SUBLINGUAL Q5M PRN 09/17/17 [History Last Taken Unknown] dutasteride 0.5 mg capsule 0.5 mg PO QDAY 09/18/17 [History Last Taken Unknown] brimonidine 0.2 % eye drops 1 drp OPHTHALMIC BID ml 10/30/17 [History Last Taken Unknown] budesonide-formoterol HFA 160 mcg-4.5 mcg/actuation aerosol inhaler 2 puff INHALATION QDAY g 10/30/17 [History Last Taken Unknown] latanoprost 0.005 % eye drops 1 drp OPHTHALMIC QPM 10/30/17 [History Last Taken Unknown] timolol 0.5 % eye drops 1 drp OPHTHALMIC BID 10/30/17 [History Last Taken Unknown] cholecalciferol (vitamin D3) 25 mcg (1,000 unit) tablet 1,000 unit PO DAILY 10/26/18 [History Last Taken Unknown] glimepiride 4 mg tablet 2 mg PO DAILY tab 10/26/18 [History Last Taken Unknown] atorvastatin 40 mg tablet 40 mg PO QHS #90 tab 10/29/19 [Rx Last Taken Unknown] furosemide 40 mg tablet 40 mg PO DAILY #30 tab 10/29/19 [Rx Last Taken Unknown] potassium chloride 20 mEq tablet,extended release 40 meq PO QDAY #180 tab 12/29/19 [Rx Last Taken Unknown] diltiazem HCl 120 mg capsule,extended release 24 hr 120 mg PO DAILY #90 cap 08/22/20 [Rx Last Taken Unknown] metoprolol tartrate 50 mg tablet 50 mg PO BID #180 ea 08/22/20 [Rx Last Taken Unknown] apixaban 5 mg tablet See Rx Instructions .ROUTE .COMPLEX #180 tablet 10/17/20 [Rx Last Taken Unknown] hydrocodone-acetaminophen 1 tab PO Q6H PRN 3 Days #10 tab 11/25/20 [Rx Last Taken Unknown] Allergy/AdvReac Type Severity Reaction Status Date / Time Iodinated Contrast Media Allergy Hives Verified 12/09/19 14:22 [CONTRASTS] amoxicillin [From Augmentin] AdvReac Upset Verified 12/09/19 14:22 Stomach clavulanic acid AdvReac Upset Verified 12/09/19 14:22 [From Augmentin] Stomach Family History Mother CAD (coronary artery disease) Sister Diabetes Surgical History Aortocoronary bypass status (~07/27/97) History of abdominal aortic aneurysm repair (~07/15/07) History of abdominal aortic aneurysm repair (~2007) Hx of appendectomy Presence of stent in coronary artery (~04/25/10) Social History Smoking Status: Former smoker alcohol intake: never substance use type: does not use ROS ROS ED Constitutional Constitutional ED: Denies chills or weight loss Eyes Eyes: Denies change in vision or diplopia ENT ENT ED: Denies ear pain, rhinorrhea or sore throat Cardiovascular Cardiovascular: Reports chest pain; Denies orthopnea, palpitations or racing heartbeat Respiratory/Chest Respiratory/Chest: Reports cough and dyspnea; Denies orthopnea Gastrointestinal Gastrointestinal: Denies abdominal pain, diarrhea, nausea or vomiting Genitourinary Genitourinary ED: Denies dysuria, hematuria or urinary frequency Musculoskeletal Musculoskeletal: Denies arthralgias or myalgias Integumentary Denies abscess or rash Neurologic Neurologic: Denies headache(s) or weakness Psychiatric Psychiatric: Denies anxiety, depression, suicidal ideation or suicidal thoughts Endocrine Endocrinology: Denies polydipsia, polyphagia or polyuria Allergic/Immunologic Allergic/Immunologic ED: Denies mouth swelling, tongue swelling or urticaria EXAM Physical Exam Narrative Exam Narrative: Frail elderly male laying in the bed Const Vital Signs: 12/03/20 12:35 12/03/20 12:37 12/03/20 12:39 Temperature 97.8 F Temperature Source Temporal Pulse Rate 68 Respiratory Rate 28 H Respiratory Effort Normal Non-Labored Respiratory Depth Normal Respiratory Pattern Normal Blood Pressure 123/55 H Blood Pressure Mean 77 Pulse Ox 88 96 Oxygen Delivery Method Room Air Nasal Cannula Nasal Cannula Oxygen Flow Rate (L/min) 2 2 12/03/20 13:13 12/03/20 13:16 Temperature 97.9 F Temperature Source Temporal Pulse Rate 63 64 Respiratory Rate 14 24 H Respiratory Effort Respiratory Depth Respiratory Pattern Tachypnea Blood Pressure 126/58 H Blood Pressure Mean 80 Pulse Ox 94 Oxygen Delivery Method Nasal Cannula Oxygen Flow Rate (L/min) 2 Positive well nourished and well developed General Appearance ED: well developed HEENT Reports normocephalic, head/scalp atraumatic and moist mucous membranes Eyes PERRL and EOMs intact bilaterally Neck no lymphadenopathy, supple and no JVD Resp Resp Narrative: Patient is tachypneic at rest chest is tender on the left mid ribs Auscultation: rhonchi Cardio regular rate, regular rhythm and no murmurs GI normal to inspection, nondistended, normoactive bowel sounds and non-tender Palpation: soft Back/Spine no CVA tenderness and normal ROM Extremity normal to inspection General Extremety ED: Negative for edema General Extremity: Negative for edema Neuro oriented x3 and CN's II-XII intact bilaterally Sensorium / Orientation: alert Motor Exam: strength 5/5 throughout Psych mental status grossly normal Mood & Affect: Negative for depressed or tearful Skin no rashes or lesions noted and no wounds MDM MDM MDM Narrative Medical decision making narrative: My interpretation of the chest x-ray is pleural effusion on the left (probably small hemothorax) and possible early infiltrative changes left lower lobe. Patient received a breathing treatment. Patient appears extremely frail. He has a subacute rib fracture has now developed a cough with rhonchi. My concern is that he may be developing pneumonia. I gave him Rocephin and azithromycin. Not sure how the patient will do at home. He is at high risk of recurrent fall and may benefit from placement. This was briefly discussed with family. Lab Data Attestation: I reviewed the patient's lab results. Labs: Laboratory Results - last 24 hr 12/03/20 12/03/20 12/03/20 13:05 13:05 13:05 WBC 7.5 RBC 4.70 Hgb 13.6 Hct 44.7 MCV 95.1 H MCH 28.9 MCHC 30.4 L RDW Std Deviation 50.0 H RDW Coeff of Samuel 14.3 Plt Count 253 MPV 9.4 Immature Gran % (Auto) 0.400 Neut % (Auto) 73.4 H Lymph % (Auto) 12.0 L [place] % (Auto) 12.1 H Eos % (Auto) 1.6 Baso % (Auto) 0.5 Absolute Neuts (auto) 5.5 Absolute Lymphs (auto) 0.90 Nucleated RBC % 0 PT 18.7 H INR 1.6 APTT 50.7 H Sodium 142 Potassium 4.2 Chloride 107 Carbon Dioxide 30.0 Anion Gap 5 BUN 21 H Creatinine 0.94 Estim Creat Clear Calc 44.52 Est GFR (MDRD) Af Amer 98 Est GFR (MDRD) Non-Af 81 BUN/Creatinine Ratio 22.4 H Glucose 153 H Lactic Acid Calcium 8.9 Total Bilirubin 0.60 AST 13 L ALT 14 L Alkaline Phosphatase 77 Troponin I < 0.015 Total Protein 6.7 Albumin 3.1 L Globulin 3.6 Albumin/Globulin Ratio 0.9 Urine Color Urine Clarity Urine pH Ur Specific [place] Urine Protein Urine Glucose (UA) Urine Ketones Urine Occult Blood Urine Nitrite Urine Bilirubin Urine Urobilinogen Ur Leukocyte Esterase Urine RBC Urine WBC Ur Squamous Epith Cells Urine Bacteria Urine Mucus 12/03/20 12/03/20 13:05 14:10 WBC RBC Hgb Hct MCV MCH MCHC RDW Std Deviation RDW Coeff of Samuel Plt Count MPV Immature Gran % (Auto) Neut % (Auto) Lymph % (Auto) [place] % (Auto) Eos % (Auto) Baso % (Auto) Absolute Neuts (auto) Absolute Lymphs (auto) Nucleated RBC % PT INR APTT Sodium Potassium Chloride Carbon Dioxide Anion Gap BUN Creatinine Estim Creat Clear Calc Est GFR (MDRD) Af Amer Est GFR (MDRD) Non-Af BUN/Creatinine Ratio Glucose Lactic Acid 1.4 Calcium Total Bilirubin AST ALT Alkaline Phosphatase Troponin I Total Protein Albumin Globulin Albumin/Globulin Ratio Urine Color Yellow Urine Clarity Clear Urine pH 5.0 Ur Specific [place] 1.025 Urine Protein 15 H Urine Glucose (UA) 250 H Urine Ketones 5 H Urine Occult Blood 150 H Urine Nitrite Negative Urine Bilirubin 1 H Urine Urobilinogen 1 H Ur Leukocyte Esterase 25 H Urine RBC 10-25 SEEN Urine WBC 0 SEEN Ur Squamous Epith Cells 0 SEEN Urine Bacteria 0 SEEN Urine Mucus 0 SEEN EKG Initial EKG: Attestation: I personally reviewed and interpreted this EKG as follows: Comments: EKG is normal sinus rhythm with sinus arrhythmia. Ventricular rate of 66. Discharge Plan Triage Chief Complaint: Shortness of Breath ED Provider: Walter Rider Dx/Rx/DC Orders Clinical Impression: Emphysema, unspecified, Left rib fracture, Pneumonia, Pleural effusion on left Prescriptions: No Action budesonide-formoterol [Symbicort] 160-4.5 mcg/actuation HFA aerosol inhaler 2 puff INHALATION QDAY RF: 0 latanoprost 0.005 % drops 1 drp OPHTHALMIC QPM RF: 0 timolol 0.5 % drops 1 drp OPHTHALMIC BID RF: 0 brimonidine 0.2 % drops 1 drp OPHTHALMIC BID RF: 0 glimepiride 4 mg tablet 2 mg PO DAILY RF: 0 dutasteride 0.5 mg capsule 0.5 mg PO QDAY RF: 0 nitroglycerin 0.4 mg tablet, sublingual 0.4 mg SUBLINGUAL Q5M PRNRF: 0 cholecalciferol (vitamin D3) 1,000 unit tablet 1,000 unit PO DAILY RF: 0 hydrocodone-acetaminophen 5-325 mg tablet 1 tab PO Q6H PRN (Reason: pain) 3 Days Qty: 10 RF: 0 atorvastatin 40 mg tablet 40 mg PO QHS Qty: 90 RF: 3 furosemide 40 mg tablet 40 mg PO DAILY Qty: 30 RF: 11 potassium chloride 20 mEq tablet extended release 40 meq PO QDAY Qty: 180 RF: 3 diltiazem HCl 120 mg capsule,extended release 24hr 120 mg PO DAILY Qty: 90 RF: 3 metoprolol tartrate 50 mg tablet 50 mg PO BID Qty: 180 RF: 3 apixaban [Eliquis] 5 mg tablet See Rx Instructions .ROUTE .COMPLEX Qty: 180 RF: 4 Primary Care Provider: Lazarus Billings Chi Referrals: Lazarus Billings Chi, MD [Primary Care Provider] - Disposition Disposition: Acute Care Hospital [facility]
--- NOTE | 2020-12-03 15:33 | HP.PCM.HOS_ITS ---
HPI - General General Date of Admission: 12/03/20 HPI Narrative PIEDAD URIBE, is a 85 M who presented to the emergency department [facility] on 12/03/2020 with a chief complaint of shortness of breath. Approximately 8 days ago Mr. Uribe fell and broke his left seventh rib and he had subsequently developed increased shortness of breath and a moist cough that is rhonchorous sounding. His is at the bedside and gives his history as he has Alzheimer's type dementia and at baseline is only alert and oriented to self. She states his fall resulted from his feet getting tangled up while he was ambulating. He lives at home with her and she is his primary caregiver. It sounds as if he is been declining some. She reports that his p.o. intake is still adequate and denies any signs of aspiration with oral intake. In the emergency department he is afebrile, his heart rate is in the 60s, his blood pressure is within normal limits and after being placed on supplemental oxygen his oxygen saturations are 96 to 97% with a normal respiratory rate. Upon presentation his oxygen saturation was 88-90% on room air. His CBC was overall unremarkable with no elevated white count although he did have a mild left shift with a neutrophilia. His BMP is unremarkable as well. He had a normal lactic acid. He had a normal troponin. His UA showed some hematuria but no signs of infection. His EKG was unremarkable. His chest x-ray showed an interstitial left lung base infiltrate and COPD with bullous emphysema. He was treated in the emergency department supplemental oxygen, IV fluids, azithromycin, and ceftriaxone. He will be admitted to the medical floor for further treatment of his pneumonia and evaluation for placement. 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 COPD (chronic obstructive pulmonary disease) Emphysema, unspecified Essential hypertension Glaucoma History of DVT (deep vein thrombosis) History of tobacco use HLD (hyperlipidemia) HTN (hypertension) Old myocardial infarction SCOTTIE (obstructive sleep apnea) Paroxysmal atrial fibrillation Prostate cancer Rheumatoid arthritis Sebaceous cyst Type 2 diabetes mellitus Home Medications nitroglycerin 0.4 mg sublingual tablet 0.4 mg SUBLINGUAL Q5M PRN 09/17/17 [History Last Taken Unknown] dutasteride 0.5 mg capsule 0.5 mg PO QDAY 09/18/17 [History Last Taken Unknown] brimonidine 0.2 % eye drops 1 drp OPHTHALMIC BID ml 10/30/17 [History Last Taken Unknown] budesonide-formoterol HFA 160 mcg-4.5 mcg/actuation aerosol inhaler 2 puff INHALATION QDAY g 10/30/17 [History Last Taken Unknown] latanoprost 0.005 % eye drops 1 drp OPHTHALMIC QPM 10/30/17 [History Last Taken Unknown] timolol 0.5 % eye drops 1 drp OPHTHALMIC BID 10/30/17 [History Last Taken Unknown] cholecalciferol (vitamin D3) 25 mcg (1,000 unit) tablet 1,000 unit PO DAILY 10/26/18 [History Last Taken Unknown] glimepiride 4 mg tablet 2 mg PO DAILY tab 10/26/18 [History Last Taken Unknown] atorvastatin 40 mg tablet 40 mg PO QHS #90 tab 10/29/19 [Rx Last Taken Unknown] furosemide 40 mg tablet 40 mg PO DAILY #30 tab 10/29/19 [Rx Last Taken Unknown] potassium chloride 20 mEq tablet,extended release 40 meq PO QDAY #180 tab 12/29/19 [Rx Last Taken Unknown] diltiazem HCl 120 mg capsule,extended release 24 hr 120 mg PO DAILY #90 cap 08/22/20 [Rx Last Taken Unknown] metoprolol tartrate 50 mg tablet 50 mg PO BID #180 ea 08/22/20 [Rx Last Taken Unknown] apixaban 5 mg tablet See Rx Instructions .ROUTE .COMPLEX #180 tablet 10/17/20 [Rx Last Taken Unknown] hydrocodone-acetaminophen 1 tab PO Q6H PRN 3 Days #10 tab 11/25/20 [Rx Last Taken Unknown] insulin degludec [Tresiba FlexTouch U-100] 14 unit SUBCUT DAILY 12/03/20 [History Last Taken Unknown] Allergy/AdvReac Type Severity Reaction Status Date / Time Iodinated Contrast Media Allergy Hives Verified 12/09/19 14:22 [CONTRASTS] amoxicillin [From Augmentin] AdvReac Upset Verified 12/09/19 14:22 Stomach clavulanic acid AdvReac Upset Verified 12/09/19 14:22 [From Augmentin] Stomach Family History Mother CAD (coronary artery disease) Sister Diabetes Surgical History Aortocoronary bypass status (~07/27/97) History of abdominal aortic aneurysm repair (~07/15/07) History of abdominal aortic aneurysm repair (~2007) Hx of appendectomy Presence of stent in coronary artery (~04/25/10) Social History Smoking Status: Former smoker alcohol intake: never substance use type: does not use ROS Review of Systems ROS Unobtainable: due to mental status and other Details: Dementia Vital Signs Vital Signs Vital Signs: 12/03/20 12:35 12/03/20 12:37 12/03/20 12:39 Temperature 97.8 F Temperature Source Temporal Pulse Rate 68 Respiratory Rate 28 H Respiratory Effort Normal Non-Labored Respiratory Depth Normal Respiratory Pattern Normal Blood Pressure 123/55 H Blood Pressure Mean 77 Pulse Ox 88 96 Oxygen Delivery Method Room Air Nasal Cannula Nasal Cannula Oxygen Flow Rate (L/min) 2 2 12/03/20 13:13 12/03/20 13:16 12/03/20 13:37 Temperature 97.9 F 97.8 F Temperature Source Temporal Temporal Pulse Rate 63 64 62 Respiratory Rate 14 24 H 14 Respiratory Effort Respiratory Depth Respiratory Pattern Tachypnea Blood Pressure 126/58 H 110/62 Blood Pressure Mean 80 78 Pulse Ox 94 97 Oxygen Delivery Method Nasal Cannula Nasal Cannula Oxygen Flow Rate (L/min) 2 3 12/03/20 14:00 12/03/20 15:00 12/03/20 15:27 Temperature 97.5 F L 97.6 F L 97.6 F L Temperature Source Temporal Temporal Temporal Pulse Rate 63 64 64 Respiratory Rate 12 14 14 Respiratory Effort Respiratory Depth Respiratory Pattern Blood Pressure 118/74 112/71 116/71 Blood Pressure Mean 88 84 86 Pulse Ox 97 96 97 Oxygen Delivery Method Nasal Cannula Nasal Cannula Nasal Cannula Oxygen Flow Rate (L/min) 3 3 3 Physical Exam Const alert and no apparent distress Constitutional Narrative: Thin elderly white male sitting up in bed alert but oriented only to self, at bedside she indicates this is his baseline General Appearance: cooperative; Negative for uncooperative Orientation / Consciousness: confused and disoriented; Negative for lethargic HEENT normocephalic, head/scalp atraumatic, moist oral mucous membranes and oropharynx normal; Negative for hearing grossly normal bilaterally or dentition normal HEENT Narrative: [place], edentulous Mouth: oral and palatal mucosa normal and moist mucous membranes abnormal Eyes PERRL, EOMs intact bilaterally and conjunctivae normal Neck no lymphadenopathy, supple, no JVD and no carotid bruits Resp normal respiratory effort, no retractions and no use of accessory muscles Resp Narrative: Diminished diffusely Auscultation: rhonchi left lower; Negative for crackles, rales or wheezes Cardio regular rate, regular rhythm, S1 normal heart sound, S2 normal heart sound, no murmurs, no rub, no gallops, no clicks and no JVD GI normal to inspection, nondistended, normoactive bowel sounds, soft to palpation, non-tender and non-distended; Negative for hepatosplenomegaly Auscultation: Negative for hyperactive bowel sounds or hypoactive bowel sounds Palpation: Negative for tender, guarding or hernia Extremity Negative for normal to inspection, full ROM or no clubbing, cyanosis or edema Peripheral Pulses: Yes pulses 2+ throughout Skin no rashes or lesions noted, no wounds, skin turgor normal, no jaundice, no petechiae and no mottling Neuro CN's II-XII intact bilaterally, moves all extremities and no focal motor d eficits Neuro Narrative: Significant generalized weakness proximal greater than distal, 2+ reflexes throughout Sensorium / Orientation: awake, alert and oriented to person; Negative for oriented to place or oriented to time Speech: speech normal Psych affect normal Psych Narrative: Pleasantly confused Lab / Micro Data Attestation: I reviewed the patient's lab results. Result Diagrams: 12/03/20 13:05 12/03/20 13:05 Labs: Laboratory Results - last 24 hr 12/03/20 12/03/20 12/03/20 13:05 13:05 13:05 WBC 7.5 RBC 4.70 Hgb 13.6 Hct 44.7 MCV 95.1 H MCH 28.9 MCHC 30.4 L RDW Std Deviation 50.0 H RDW Coeff of Samuel 14.3 Plt Count 253 MPV 9.4 Immature Gran % (Auto) 0.400 Neut % (Auto) 73.4 H Lymph % (Auto) 12.0 L [place] % (Auto) 12.1 H Eos % (Auto) 1.6 Baso % (Auto) 0.5 Absolute Neuts (auto) 5.5 Absolute Lymphs (auto) 0.90 Nucleated RBC % 0 PT 18.7 H INR 1.6 APTT 50.7 H Sodium 142 Potassium 4.2 Chloride 107 Carbon Dioxide 30.0 Anion Gap 5 BUN 21 H Creatinine 0.94 Estim Creat Clear Calc 44.52 Est GFR (MDRD) Af Amer 98 Est GFR (MDRD) Non-Af 81 BUN/Creatinine Ratio 22.4 H Glucose 153 H Lactic Acid Calcium 8.9 Total Bilirubin 0.60 AST 13 L ALT 14 L Alkaline Phosphatase 77 Troponin I < 0.015 Total Protein 6.7 Albumin 3.1 L Globulin 3.6 Albumin/Globulin Ratio 0.9 Urine Color Urine Clarity Urine pH Ur Specific [place] Urine Protein Urine Glucose (UA) Urine Ketones Urine Occult Blood Urine Nitrite Urine Bilirubin Urine Urobilinogen Ur Leukocyte Esterase Urine RBC Urine WBC Ur Squamous Epith Cells Urine Bacteria Urine Mucus 12/03/20 12/03/20 13:05 14:10 WBC RBC Hgb Hct MCV MCH MCHC RDW Std Deviation RDW Coeff of Samuel Plt Count MPV Immature Gran % (Auto) Neut % (Auto) Lymph % (Auto) [place] % (Auto) Eos % (Auto) Baso % (Auto) Absolute Neuts (auto) Absolute Lymphs (auto) Nucleated RBC % PT INR APTT Sodium Potassium Chloride Carbon Dioxide Anion Gap BUN Creatinine Estim Creat Clear Calc Est GFR (MDRD) Af Amer Est GFR (MDRD) Non-Af BUN/Creatinine Ratio Glucose Lactic Acid 1.4 Calcium Total Bilirubin AST ALT Alkaline Phosphatase Troponin I Total Protein Albumin Globulin Albumin/Globulin Ratio Urine Color Yellow Urine Clarity Clear Urine pH 5.0 Ur Specific [place] 1.025 Urine Protein 15 H Urine Glucose (UA) 250 H Urine Ketones 5 H Urine Occult Blood 150 H Urine Nitrite Negative Urine Bilirubin 1 H Urine Urobilinogen 1 H Ur Leukocyte Esterase 25 H Urine RBC 10-25 SEEN Urine WBC 0 SEEN Ur Squamous Epith Cells 0 SEEN Urine Bacteria 0 SEEN Urine Mucus 0 SEEN Radiology Impression Chest X-Ray 12/03/20 13:00 IMPRESSION: 1. Suspicious interstitial infiltrates in the lung bases and possibly in the left midlung. HRCT chest will be helpful for further clarification if Covid 19 pneumonia is a clinical consideration. 2. COPD with bullous emphysema in the right upper lobe is unchanged. Electronically Signed: Ward Khalil MD at 15:31 EDT , Service support , Assessment & Plan Assessment/Plan (1) Pneumonia: (2) Left rib fracture: (3) Essential hypertension: (4) Paroxysmal atrial fibrillation: (5) Type 2 diabetes mellitus: (6) HLD (hyperlipidemia): QUALIFIERS: Hyperlipidemia type: unspecified Qualified Code(s): E78.5 - Hyperlipidemia, unspecified (7) Abdominal aortic aneurysm (AAA): (8) History of DVT (deep vein thrombosis): (9) Hematuria: (10) BPH (benign prostatic hyperplasia): (11) Glaucoma: (12) COPD (chronic obstructive pulmonary disease): (13) CAD (coronary artery disease): (14) Acute respiratory insufficiency: PLAN: Acute respiratory insufficiency secondary to community-acquired pneumonia -This is most likely related to left rib fracture and decreased inspiratory effort -Azithromycin and ceftriaxone were initiated in the emergency department -Continue these antibiotics -Check Legionella and strep pneumo urine antigens -Viral respiratory PCR -Sputum culture if patient able to produce -Incentive spirometry and Acapella -Scheduled duo nebs and as needed albuterol -Mucinex twice daily 1200 mg -Continue home inhalers -Supplemental oxygen--> currently requiring 2 L -Wean as able -MRSA PCR Subacute left seventh rib fracture -Continue oxycodone 5 mg every 6 hours for pain management -Tylenol is available for mild pain Recent fall -Consult PT and Occupational Therapy -Per patient lost his balance -Patient will most likely need placement at discharge for further rehab Alzheimer's type dementia -Patient at baseline is alert but only oriented to self per who is at bedside -Patient has had some mild decreasing function over time - reports that his p.o. intake is still good and she notices no signs of aspiration -May need TCU placement at discharge -Consult palliative care for further resources as an outpatient COPD-bullous emphysema -Continue home inhalers -No current need for steroids Paroxysmal atrial fibrillation -Continue diltiazem 120 mg daily -Continue metoprolol 50 mg twice daily -Continue apixaban 5 mg twice daily -Monitor on telemetry since patient is having respiratory issues at this time and will have increased risk of reverting into RVR -Current EKG shows normal sinus rhythm CAD/HPL/HTN -Patient has history of CABG x2 with HUSAIN to LAD and SVG to PDA on 07/27/1997; PCI performed on 04/25/2010 -Continue risk factor modification -Initial troponin was negative and patient is chest pain-free -EKG is unremarkable for acute ischemic changes -Patient is not on any antiplatelet therapy -Continue statin -Continue antihypertensives -Continue home Lasix Glaucoma -Continue home eyedrops BPH/history of prostate cancer -Continue alpha-nancy DM-2 -SSI -Before meals and at bedtime BGTs -Hold home oral medication History of AAA -Continue blood pressure control History of DVT -Continue apixaban CODE STATUS -DNR CCA no intubation per discussion with in the emergency department Visit Charges Inpatient E&M: 32497 Init Hosp L3
[2020-12-03] MEDS: Glucerna Shake 120 ML LIQUID PO (17:26)
[2020-12-03 18:19] LABS: M R Staph aureus DNA By PCR Negative (Negative); Probe Check PASS; Specimen Processing Control PASS
[2020-12-03] MEDS: Budesonide Respules 0.5 MG/2 ML AMPUL.NEB. INHALATION (19:00)
[2020-12-03] MEDS: Menthol/Lanolin/Calamine/Znox 113 GM Tube 1 APPLIC TOPICAL (21:52)
[2020-12-03] MEDS: Insulin Lispro 100 UNIT/ML INSULN.PEN SC (21:57)
[2020-12-03] MEDS: guaiFENesin 1,200 MG Tablet 1200 MG PO (21:57)
[2020-12-03] MEDS: APIXABAN 5 MG TABLET PO (21:58)
[2020-12-03] MEDS: Timolol 0.5% 5ML OPTH.BTL 1 DRP OPHTHALMIC (21:58)
[2020-12-03] MEDS: BRIMONIDINE 0.2% 5ML BOTTLE 1 DRP OPHTHALMIC (21:58)
[2020-12-03] MEDS: Atorvastatin Calcium 40 MG Tablet PO (22:00)
[2020-12-03] MEDS: Metoprolol Tartrate 50 MG Tablet PO (22:00)
[2020-12-03 22:15] LABS: Bedside Glucose 202 mg/dL (70-110)
[2020-12-04] VITALS (17 sets, daily range): BP systolic 102–119; BP diastolic 49–86; PULSE 58–84; RESP 16–26; TEMP 36.3–36.8; O2SAT 94–99
[2020-12-04 06:06] LABS: Absolute Lymphocyte Count 0.98 X10^3/uL (0.83-4.51); Absolute Neutrophil Count 3.7 X10^3/uL (2.0-7.7); Basophil# 0.03 X10^3/uL; Basophil% 0.5 % (0-1); Eosinophils% 3.7 % (0-5); Hematocrit 38.9 % (40-54); Hemoglobin 12.2 g/dL (13.0-16.5); Lymphocyte # 0.98 X10^3/ul (0.83-4.51); Lymphocyte % 17.9 % (19-41); Mean Corp Hgb Conc 31.4 g/dL (32-36); Mean Corpuscular Hgb 29.7 pg (27.0-32.0); Mean Corpuscular Volume 94.6 fL (80-94); Mean Platelet Vol. 9.3 fl (6.2-12.0); Monocyte# 0.56 X10^3/uL; Monocyte% 10.2 % (0-10); NRBC Flagged by Analyzer 0 % (0-5); Neutrophil # 3.69 X10^3/uL (2.7-7.7); Neutrophil % 67.5 % (47-70); Platelet Count 217 K/mm3 (150-450); RBC Distribution Width CV 14.3 % (11.6-14.6); RBC Distribution Width SD 49.1 fl (35.1-43.9); Red Blood Count 4.11 M/mm3 (4.6-6.2); White Blood Count 5.5 K/mm3 (4.4-11.0)
[2020-12-04 06:26] LABS: Anion Gap 3 (5-15); BUN 18 mg/dL (7-18); BUN/Creat Ratio 27.4 RATIO (10-20); Calcium,Total 8.5 mg/dL (8.5-10.1); Chloride 109 mmol/L (98-107); Creatinine, Serum 0.66 mg/dL (0.70-1.30); EST Glomerular Filtration Rate 122 mL/min (>60); Est Glom Filt Rate - Afr Amer 148 mL/min (>60); Glucose 56 mg/dL (74-106); Phosphorus 3.1 mg/dL (2.5-4.9); Potassium 3.9 mmol/L (3.5-5.1); Sodium Level 144 mmol/L (136-145)
[2020-12-04 07:05] LABS: Bedside Glucose 63 mg/dL (70-110)
[2020-12-04 07:21] LABS: Bedside Glucose 88 mg/dL (70-110)
[2020-12-04] MEDS: Ipratropium/Albuterol Sulfate 3 ML AMPUL.NEB INHALATION ×5 (07:29→22:47)
[2020-12-04] MEDS: Budesonide Respules 0.5 MG/2 ML AMPUL.NEB. INHALATION ×2 (07:30→18:53)
[2020-12-04] MEDS: guaiFENesin 1,200 MG Tablet 1200 MG PO ×2 (08:12→21:27)
[2020-12-04] MEDS: Cholecalciferol (VIT D3) 25 MCG TABLET (1,000 UNITS) PO (08:13)
[2020-12-04] MEDS: Metoprolol Tartrate 50 MG Tablet PO ×2 (08:13→21:30)
[2020-12-04] MEDS: APIXABAN 5 MG TABLET PO ×2 (08:13→21:28)
[2020-12-04] MEDS: Menthol/Lanolin/Calamine/Znox 113 GM Tube 1 APPLIC TOPICAL (08:13)
[2020-12-04] MEDS: dilTIAZem CD 120 MG Capsule PO (08:13)
[2020-12-04] MEDS: BRIMONIDINE 0.2% 5ML BOTTLE 1 DRP OPHTHALMIC ×2 (08:14→21:28)
[2020-12-04] MEDS: Timolol 0.5% 5ML OPTH.BTL 1 DRP OPHTHALMIC ×2 (08:14→21:28)
[2020-12-04] MEDS: Finasteride 5 MG Tablet PO (08:14)
[2020-12-04] MEDS: Glucerna Shake 120 ML LIQUID PO ×4 (08:15→21:27)
[2020-12-04] MEDS: 0.9% Saline Lock 10 ML Syringe IV (09:40)
--- NOTE | 2020-12-04 10:48 | PCM.PN.HOSP ---
Subjective Subjective Patient notes he is still coughing. Per discussion with nursing he had a good night overall. Oxygen saturations remained stable on 2 L nasal cannula. Objective Data Objective Data Vital Signs: Vital Signs Temp Pulse Resp BP Pulse Ox 97.3 F L 80 18 102/86 H 98 12/04/20 08:10 12/04/20 08:13 12/04/20 08:10 12/04/20 08:10 12/04/20 08:10 Oxygen Flow Rate (L/min) 2 Oxygen Delivery Method Nasal Cannula Weight: 55.2 kg Body Mass Index (BMI) 19.1 Intake & Output: Intake and Output for Last 24 Hours 12/02/20 12/03/20 12/04/20 23:59 23:59 23:59 Intake Total 1085 / 1085 50 / 50 Output Total 150 / 150 Balance 1085 / 1035 -100 / -100 Lab / Micro Data Result Diagrams: 12/04/20 05:58 12/04/20 05:58 Labs: Laboratory Results - last 24 hr 12/03/20 12/03/20 12/03/20 13:05 13:05 13:05 WBC 7.5 RBC 4.70 Hgb 13.6 Hct 44.7 MCV 95.1 H MCH 28.9 MCHC 30.4 L RDW Std Deviation 50.0 H RDW Coeff of Samuel 14.3 Plt Count 253 MPV 9.4 Immature Gran % (Auto) 0.400 Neut % (Auto) 73.4 H Lymph % (Auto) 12.0 L [place] % (Auto) 12.1 H Eos % (Auto) 1.6 Baso % (Auto) 0.5 Absolute Neuts (auto) 5.5 Absolute Lymphs (auto) 0.90 Nucleated RBC % 0 PT 18.7 H INR 1.6 APTT 50.7 H Sodium 142 Potassium 4.2 Chloride 107 Carbon Dioxide 30.0 Anion Gap 5 BUN 21 H Creatinine 0.94 Estim Creat Clear Calc 44.52 Est GFR (MDRD) Af Amer 98 Est GFR (MDRD) Non-Af 81 BUN/Creatinine Ratio 22.4 H Glucose 153 H Lactic Acid Calcium 8.9 Phosphorus Magnesium Total Bilirubin 0.60 AST 13 L ALT 14 L Alkaline Phosphatase 77 Troponin I < 0.015 Total Protein 6.7 Albumin 3.1 L Globulin 3.6 Albumin/Globulin Ratio 0.9 Urine Color Urine Clarity Urine pH Ur Specific [place] Urine Protein Urine Glucose (UA) Urine Ketones Urine Occult Blood Urine Nitrite Urine Bilirubin Urine Urobilinogen Ur Leukocyte Esterase Urine RBC Urine WBC Ur Squamous Epith Cells Urine Bacteria Urine Mucus MRSA (PCR) POC Glucose 12/03/20 12/03/20 12/03/20 13:05 14:10 16:50 WBC RBC Hgb Hct MCV MCH MCHC RDW Std Deviation RDW Coeff of Samuel Plt Count MPV Immature Gran % (Auto) Neut % (Auto) Lymph % (Auto) [place] % (Auto) Eos % (Auto) Baso % (Auto) Absolute Neuts (auto) Absolute Lymphs (auto) Nucleated RBC % PT INR APTT Sodium Potassium Chloride Carbon Dioxide Anion Gap BUN Creatinine Estim Creat Clear Calc Est GFR (MDRD) Af Amer Est GFR (MDRD) Non-Af BUN/Creatinine Ratio Glucose Lactic Acid 1.4 Calcium Phosphorus Magnesium Total Bilirubin AST ALT Alkaline Phosphatase Troponin I Total Protein Albumin Globulin Albumin/Globulin Ratio Urine Color Yellow Urine Clarity Clear Urine pH 5.0 Ur Specific [place] 1.025 Urine Protein 15 H Urine Glucose (UA) 250 H Urine Ketones 5 H Urine Occult Blood 150 H Urine Nitrite Negative Urine Bilirubin 1 H Urine Urobilinogen 1 H Ur Leukocyte Esterase 25 H Urine RBC 10-25 SEEN Urine WBC 0 SEEN Ur Squamous Epith Cells 0 SEEN Urine Bacteria 0 SEEN Urine Mucus 0 SEEN MRSA (PCR) Negative POC Glucose 12/03/20 12/04/20 12/04/20 21:51 05:58 05:58 WBC 5.5 RBC 4.11 L Hgb 12.2 L Hct 38.9 L MCV 94.6 H MCH 29.7 MCHC 31.4 L RDW Std Deviation 49.1 H RDW Coeff of Samuel 14.3 Plt Count 217 MPV 9.3 Immature Gran % (Auto) 0.200 Neut % (Auto) 67.5 Lymph % (Auto) 17.9 L [place] % (Auto) 10.2 H Eos % (Auto) 3.7 Baso % (Auto) 0.5 Absolute Neuts (auto) 3.7 Absolute Lymphs (auto) 0.98 Nucleated RBC % 0 PT INR APTT Sodium 144 Potassium 3.9 Chloride 109 H Carbon Dioxide 32.0 Anion Gap 3 L BUN 18 Creatinine 0.66 L Estim Creat Clear Calc 41.40 Est GFR (MDRD) Af Amer 148 Est GFR (MDRD) Non-Af 122 BUN/Creatinine Ratio 27.4 H Glucose 56 L Lactic Acid Calcium 8.5 Phosphorus 3.1 Magnesium 2.0 Total Bilirubin AST ALT Alkaline Phosphatase Troponin I Total Protein Albumin Globulin Albumin/Globulin Ratio Urine Color Urine Clarity Urine pH Ur Specific [place] Urine Protein Urine Glucose (UA) Urine Ketones Urine Occult Blood Urine Nitrite Urine Bilirubin Urine Urobilinogen Ur Leukocyte Esterase Urine RBC Urine WBC Ur Squamous Epith Cells Urine Bacteria Urine Mucus MRSA (PCR) POC Glucose 202 H 12/04/20 12/04/20 06:46 07:17 WBC RBC Hgb Hct MCV MCH MCHC RDW Std Deviation RDW Coeff of Samuel Plt Count MPV Immature Gran % (Auto) Neut % (Auto) Lymph % (Auto) [place] % (Auto) Eos % (Auto) Baso % (Auto) Absolute Neuts (auto) Absolute Lymphs (auto) Nucleated RBC % PT INR APTT Sodium Potassium Chloride Carbon Dioxide Anion Gap BUN Creatinine Estim Creat Clear Calc Est GFR (MDRD) Af Amer Est GFR (MDRD) Non-Af BUN/Creatinine Ratio Glucose Lactic Acid Calcium Phosphorus Magnesium Total Bilirubin AST ALT Alkaline Phosphatase Troponin I Total Protein Albumin Globulin Albumin/Globulin Ratio Urine Color Urine Clarity Urine pH Ur Specific [place] Urine Protein Urine Glucose (UA) Urine Ketones Urine Occult Blood Urine Nitrite Urine Bilirubin Urine Urobilinogen Ur Leukocyte Esterase Urine RBC Urine WBC Ur Squamous Epith Cells Urine Bacteria Urine Mucus MRSA (PCR) POC Glucose 63 L 88 Micro: Microbiology 12/03/20 14:10 Urine, Clean Catch Urine Culture - Preliminary Culture exhibits no growth. 12/03/20 20:30 Urine, Clean Catch Legionella Antigen - Final 12/03/20 20:30 Urine, Clean Catch Streptococcus pneumoniae Antigen (M - Final 12/03/20 16:51 Mucosa - Nose Respiratory Panel (PCR) - Final Radiography Diagnostic Testing: Radiology Impression Chest X-Ray 12/03/20 13:00 IMPRESSION: 1. Suspicious interstitial infiltrates in the lung bases and possibly in the left midlung. HRCT chest will be helpful for further clarification if Covid 19 pneumonia is a clinical consideration. 2. COPD with bullous emphysema in the right upper lobe is unchanged. Electronically Signed: Ward Khalil MD at 15:31 EDT , Service support , Physical Exam Const alert and no apparent distress Constitutional Narrative: Elderly demented white male, sitting up in bed, on 2 L nasal cannula for supplemental oxygen, appears comfortable Orientation / Consciousness: confused Exam Limitations: other limitations Nutritional Appearance: underweight HEENT head/scalp atraumatic Head and Scalp: normocephalic Resp normal respiratory effort, no retractions and no use of accessory muscles Auscultation: rhonchi right lower (Improved since yesterday) Cardio regular rate, regular rhythm, S1 normal heart sound, S2 normal heart sound, no murmurs, no rub, no gallops, no clicks and no JVD GI normal to inspection, nondistended, normoactive bowel sounds, soft to palpation, non-tender and non-distended Extremity normal to inspection, full ROM and no clubbing, cyanosis or edema Peripheral Pulses: Yes pulses 2+ throughout Skin no rashes or lesions noted Neuro Neuro Narrative: Oriented only to self-this is baseline Sensorium / Orientation: awake, alert and oriented to person Assessment & Plan Assessment/Plan (1) Acute respiratory insufficiency: (2) Pneumonia: (3) Left rib fracture: PLAN: Acute respiratory insufficiency secondary to community-acquired pneumonia -This is most likely related to left rib fracture and decreased inspiratory effort -Patient is currently on 1 L nasal cannula with oxygen saturations of 97% -Azithromycin and ceftriaxone were initiated in the emergency department -Discontinue azithromycin and continue ceftriaxone day 2 of 7 -Legionella and strep pneumo urine antigens are negative -Viral respiratory PCR was unremarkable -Sputum culture if patient able to produce -Continue incentive spirometry and Acapella -Continue scheduled duo nebs and as needed albuterol -Continue Mucinex twice daily 1200 mg -Continue home inhalers -MRSA PCR was negative -Urine culture is negative thus far, blood cultures are pending Subacute left seventh rib fracture -Continue oxycodone 5 mg every 6 hours for pain management -Tylenol is available for mild pain Recent fall -PT and Occupational Therapy are consulted -Per patient lost his balance -Patient will most likely need placement at discharge for further rehab prior to discharge home -I discussed this with the family in the emergency room and they were willing Alzheimer's type dementia -Patient at baseline is alert but only oriented to self per who is at bedside -Patient has had some mild decreasing function over time - reports that his p.o. intake is still good and she notices no signs of aspiration -May need TCU placement at discharge -Palliative care consult is pending--> patient and family would benefit from resources after discharge COPD-bullous emphysema -Continue home inhalers -No current need for steroids Paroxysmal atrial fibrillation -Continue diltiazem 120 mg daily -Continue metoprolol 50 mg twice daily -Continue apixaban 5 mg twice daily -Monitor on telemetry since patient is having respiratory issues at this time and will have increased risk of reverting into RVR -Current EKG shows normal sinus rhythm CAD/HPL/HTN -Patient has history of CABG x2 with HUSAIN to LAD and SVG to PDA on 07/27/1997; PCI performed on 04/25/2010 -Continue risk factor modification -Initial troponin was negative and patient is chest pain-free -EKG is unremarkable for acute ischemic changes -Patient is not on any antiplatelet therapy -Continue statin -Continue antihypertensives -Continue home Lasix Glaucoma -Continue home eyedrops BPH/history of prostate cancer -Continue alpha-nancy DM-2 -SSI -Before meals and at bedtime BGTs -Hold home oral medication History of AAA -Continue blood pressure control History of DVT -Continue apixaban CODE STATUS -DNR CCA no intubation per discussion with in the emergency department Visit Charges Inpatient E&M: 57098 Subs Hosp L2
[2020-12-04 11:00] LABS: Bedside Glucose 212 mg/dL (70-110)
[2020-12-04] MEDS: Insulin Lispro 100 UNIT/ML INSULN.PEN SC (11:23)
[2020-12-04] MEDS: Donepezil HCl 5 MG Tablet PO (11:24)
--- NOTE | 2020-12-04 12:20 | CASEMGMT ---
RN LISANDRO Face to Face with patient for initial transition planning/care coordination assessment. RN CM introduced self and role at [facility]. Patient sitting in chair, at bedisde, patient is alert and oriented. Patient willing to participate in assessment and is able to answer all questions appropriately. Care providers, pharmacy, and demographics verified. Patient and for patient to discharge to a SNF. Patient and state they have no further needs or concerns at this time. LAINA Mejia updated regarding request for SNF at discharge. CM to follow for discharge planning needs that may arise. PCP: Manuelito Specialists: Babak, road equipment operator; Asad, weaver apprentice Preferred Pharmacy: [facility] Insurance: [employer] Prescription Benefit: yes Living Will/HPOA: yes, Nadira Uribe LNOK: Living Arrangements: Patient lives with in a single story home with 2 steps and railing to enter the home. has been assisting patient with ADLs. Transportation: DME/HHC: Patient has shower chair, raised toilet, walker, wheelchair, nebulizer, oxygen at 2 lpm when needed with portability through [facility]. Patient has previously had [facility]. Disposition Plan: Paitent to discharge to SNF pending acceptance and precert. Brenda TURCIOS, RN, CM
--- NOTE | 2020-12-04 12:46 | CASEMGMT ---
Social Work Note SW received consult for SNF placement. SW in to speak with pt and pt's Nadira. Patient and Nadira was provided a list of SNF providers including quality and resource use data and consistent with the patient?s preferred geographic region, medical needs, and insurance network. [facility] was not highlighted as they currently have no beds available. Nadira's preferred provider is [facility]. SW explained referral process and that pt will need a pre-cert. SW placed a call to Lakeshia at [facility] and provided referral. SW faxed referral. Plan: [facility] pending acceptance and pre-cert Brenda Mejia LATRINE CLEANER, VISCOSE CELLAR CHARGE HAND
--- NOTE | 2020-12-04 14:39 | CASEMGMT ---
Social Work Note LAINA received call from Lakeshia at [facility] stating they are able to accept pt, asked if pt has had COVID vaccinations. LAINA spoke with RN LISANDRO, pt has had both COVID vaccinations. LAINA informed Lakeshia that pt will likely be medically ready for discharge tomorrow. LAINA informed Lakeshia that this worker will submit for pre-cert through [facility]. Lakeshia states understanding. Plan: [facility] pending pre-cert Brenda Mejia SHELLFISH MEAT SEPARATOR OPERATOR, PUSHER RUNNER
[2020-12-04 15:50] LABS: Bedside Glucose 72 mg/dL (70-110)
[2020-12-04] MEDS: QUEtiapine 25 MG Tablet PO (17:58)
[2020-12-04] MEDS: Atorvastatin Calcium 40 MG Tablet PO (21:27)
[2020-12-04 21:45] LABS: Bedside Glucose 130 mg/dL (70-110)
[2020-12-05] VITALS (11 sets, daily range): BP systolic 85–132; BP diastolic 50–81; PULSE 61–70; RESP 16–22; TEMP 36.3–36.4; O2SAT 88–99
[2020-12-05] MEDS: Menthol/Lanolin/Calamine/Znox 113 GM Tube 1 APPLIC TOPICAL ×2 (02:29→09:06)
[2020-12-05 06:00] LABS: Bedside Glucose 99 mg/dL (70-110)
[2020-12-05] MEDS: Ipratropium/Albuterol Sulfate 3 ML AMPUL.NEB INHALATION (07:40)
[2020-12-05] MEDS: Timolol 0.5% 5ML OPTH.BTL 1 DRP OPHTHALMIC (09:07)
[2020-12-05] MEDS: Furosemide 40 MG Tablet PO (09:08)
[2020-12-05] MEDS: dilTIAZem CD 120 MG Capsule PO (09:08)
[2020-12-05] MEDS: guaiFENesin 1,200 MG Tablet 1200 MG PO (09:08)
[2020-12-05] MEDS: Metoprolol Tartrate 50 MG Tablet PO (09:12)
[2020-12-05] MEDS: Glucerna Shake 120 ML LIQUID PO (09:13)
[2020-12-05] MEDS: Finasteride 5 MG Tablet PO (09:13)
[2020-12-05] MEDS: Cholecalciferol (VIT D3) 25 MCG TABLET (1,000 UNITS) PO (09:13)
[2020-12-05] MEDS: BRIMONIDINE 0.2% 5ML BOTTLE 1 DRP OPHTHALMIC (09:14)
[2020-12-05] MEDS: APIXABAN 5 MG TABLET PO (09:14)
[2020-12-05] MEDS: 0.9% Saline Lock 10 ML Syringe IV (09:15)
--- NOTE | 2020-12-05 09:38 | CASEMGMT ---
Addendum entered by Brenda Mejia 12/05/20 10:10: LAINA received a call from Sheri at [facility] ([phone]) stating she can approve pt for SNF. LAINA updated physician. LAINA placed a call to Lakeshia at [facility] and updated her on approval for SNF and discharge today. Lakeshia asked if pt's record of COVID vaccination is available. LAINA informed Lakeshia that this worker is not sure if copies are at [facility] but can ask pt's . Pt will need a COVID test. SW to fax discharge paperwork once completed. SW in to speak with pt and pt's Nadira. LAINA updated pt and Nadira that [facility] has accepted pt and pre-cert has been obtained, pt will discharge today. Nadira asked for transportation to be arranged. LAINA asked Nadira about pt's COVID card. LAINA made copy of pt's COVID card, will fax to [facility] when discharge paperwork is completed. Plan: [facility] today Original Note: Social Work Note LAINA faxed referral to [facility] for SNF. LAINA placed a call to Eloise at [facility] and left message regarding referral. Plan: [facility] pending pre-cert Brenda Mejia NURSE MIDWIFE, PORCELAIN FINISH SPRAYER
--- NOTE | 2020-12-05 10:43 | PCM.CONS.P ---
Assessment & Plan Assessment/Plan (1) Shortness of breath: (2) Acute respiratory insufficiency: (3) Left rib fracture: (4) Pneumonia: (5) Emphysema, unspecified: (6) Atherosclerosis of coronary artery bypass graft without angina pectoris: QUALIFIERS: [place] vs. transplanted heart: [place] heart Qualified Code(s): I25.810 - Atherosclerosis of coronary artery bypass graft(s) without angina pectoris (7) Presence of stent in coronary artery: (8) History of DVT (deep vein thrombosis): (9) Old myocardial infarction: (10) Paroxysmal atrial fibrillation: (11) Type 2 diabetes mellitus: (12) Abdominal aortic aneurysm (AAA): (13) HLD (hyperlipidemia): QUALIFIERS: Hyperlipidemia type: unspecified Qualified Code(s): E78.5 - Hyperlipidemia, unspecified (14) Essential hypertension: (15) COPD (chronic obstructive pulmonary disease): (16) Glaucoma: (17) BPH (benign prostatic hyperplasia): (18) CAD (coronary artery disease): PLAN: 85-year-old male with Alzheimer's dementia, s/p fall with left rib fracture, consequently developed pneumonia from splinting. Seen today for initial palliative care consultation secondary to recent decline in mobility and ADLs. He is still continent and has fairly good appetite. Requiring more care at home. ?Discussed palliative care services with patient son and . They have also spoken with the liaison and will give us a call in the future once he gets settled at [facility]. Unclear if this will be permanent placement. ?Patient is palliative care appropriate and would benefit from services given his multiple comorbidities, including dementia and falls. Once he goes home, would be a positive addition to his care team. Goals would be to improve overall quality of life, symptom management, assistance with coordination of care. ?Recommendations for pain control for rib fractures are to continue Tylenol, may need this scheduled 1 g 3 times daily at [facility]. Would also add oxycodone 2.5mg PO q4h PRN severe pain if tylenol not helping. ?Need to assess risk versus benefit regarding Aricept, likely not helping at this point. Continue with Seroquel, dose adjust as needed. Thank you for the opportunity to participate in this patient's care, please do not hesitate to contact [facility] [place] [facility] with any further questions or concerns. Palliative direct line is [phone]. We will follow up once family decides if they want to pursue palliative services, at this time decision is pending. Greater than 50% of F2F visit dedicated to education and counseling of palliative care services, medications, comorbid conditions and potential assistance with management, and plan of care moving forward. Start time: 1027 End time: 1125 HPI Consult Data Date of Consult: 12/05/20 HPI Narrative HPI Narrative: PIEDAD URIBE, is a 85 M who presented to [facility] 12/03/2020 with complaints of shortness of breath. He had fell and broken his left seventh rib approximately a week ago and has subsequently developed progressive shortness of breath and moist cough. Patient lives at home with his . He does have what seems to be fairly advanced Alzheimer's dementia but is fairly functional at home. does report some decline in mobility and overall function recently. He still has a fairly good appetite. Chest x-ray and showed an interstitial left lung base infiltrate and COPD with bullous emphysema. The patient was admitted to [facility] for further evaluation and management. He is maintaining appropriate oxygen saturations on 1-2 L per nasal cannula. He is being treated for acute respiratory insufficiency and pneumonia, likely secondary to splinting from left rib fractures. Patient remains on Mucinex, inhalers, I-S and Acapella, and antibiotics. He was placed on oxycodone 5 mg every 6 hours for pain management, as well as as needed Tylenol. Patient is also on blood thinners for PAF. It has been recommended that patient discharged to a assisted facility for further rehab, family is apparently agreeable at this time. Depending upon how he does with therapy, these recommendations will be made. Plans are for patient to discharge to [facility] today. Patient has received his Covid vaccinations. He follows with Dr. Hilliard for cardiology and Dr. Kamara for pulmonology. His primary care doctor is Dr. Billings. He uses [facility] for pharmacy. Healthcare power of employee benefits attorney is his , Nadira Uribe. Patient lives in a single-story home with 2 steps and railing to enter. His transports him to any appointments. DME in the home includes shower chair, raised toilet, walker, wheelchair, nebulizer, O2 at 2 L as needed, and [facility] for oxygen supplier. Patient's and son present during evaluation. They have spoken with our palliative liaison and were given information. They would like to discuss if they would want to palliative services in the future. Discussed plan of care, medications, pneumonia prevention, comorbidities, etc. Discussed improving quality of life and symptom management. 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 COPD (chronic obstructive pulmonary disease) Emphysema, unspecified Essential hypertension Glaucoma History of DVT (deep vein thrombosis) History of tobacco use HLD (hyperlipidemia) HTN (hypertension) Old myocardial infarction SCOTTIE (obstructive sleep apnea) Paroxysmal atrial fibrillation Prostate cancer Rheumatoid arthritis Sebaceous cyst Type 2 diabetes mellitus Home Medications nitroglycerin 0.4 mg sublingual tablet 0.4 mg SUBLINGUAL Q5M PRN 09/17/17 [History Last Taken Unknown] dutasteride 0.5 mg capsule 0.5 mg PO QDAY 09/18/17 [History Last Taken Unknown] brimonidine 0.2 % eye drops 1 drp OPHTHALMIC BID ml 10/30/17 [History Last Taken Unknown] latanoprost 0.005 % eye drops 1 drp OPHTHALMIC QPM 10/30/17 [History Last Taken Unknown] timolol 0.5 % eye drops 1 drp OPHTHALMIC BID 10/30/17 [History Last Taken Unknown] cholecalciferol (vitamin D3) 25 mcg (1,000 unit) tablet 1,000 unit PO DAILY 10/26/18 [History Last Taken 12/02/20 22:00] atorvastatin 40 mg tablet 40 mg PO QHS #90 tab 10/29/19 [Rx Last Taken Unknown] diltiazem HCl 120 mg capsule,extended release 24 hr 120 mg PO DAILY #90 cap 08/22/20 [Rx Last Taken 12/03/20 10:00] metoprolol tartrate 50 mg tablet 50 mg PO BID #180 ea 08/22/20 [Rx Last Taken 12/03/20 10:00] apixaban 5 mg tablet See Rx Instructions .ROUTE .COMPLEX #180 tablet 10/17/20 [Rx Last Taken 12/03/20 10:00] albuterol sulfate 2.5 mg INHALATION DAILY 12/03/20 [History Last Taken Unknown] donepezil 5 mg PO 1200 12/03/20 [History Last Taken Unknown] khlwsjatquu-wghhmkkei-aawbnxpk [Trelegy Ellipta] 1 inh INHALATION DAILY 12/03/20 [History Last Taken 12/03/20 10:00] furosemide 40 mg PO QODAY 12/03/20 [History Last Taken Unknown] insulin degludec [Tresiba FlexTouch U-100] 14 unit SUBCUT DAILY 12/03/20 [History Last Taken Unknown] potassium chloride 20 meq PO BID 12/03/20 [History Last Taken Unknown] quetiapine 25 mg PO 1700 12/03/20 [History Last Taken Unknown] Allergy/AdvReac Type Severity Reaction Status Date / Time Iodinated Contrast Media Allergy Hives Verified 12/09/19 14:22 [CONTRASTS] amoxicillin [From Augmentin] AdvReac Upset Verified 12/09/19 14:22 Stomach clavulanic acid AdvReac Upset Verified 12/09/19 14:22 [From Augmentin] Stomach Family History Mother CAD (coronary artery disease) Sister Diabetes Surgical History Aortocoronary bypass status (~07/27/97) History of abdominal aortic aneurysm repair (~07/15/07) History of abdominal aortic aneurysm repair (~2007) Hx of appendectomy Presence of stent in coronary artery (~04/25/10) Social History Smoking Status: Former smoker alcohol intake: never substance use type: does not use ROS Constitutional Constitutional: Reports fatigue, frequent falls and weakness; Denies chills or poor appetite Cardiovascular Cardiovascular: Reports dyspnea on exertion; Denies chest pain, dizziness, edema or orthopnea Respiratory/Chest Respiratory/Chest: Reports chest congestion and cough; Denies hoarseness or wheezing Gastrointestinal Gastrointestinal: Reports none Genitourinary Genitourinary: Reports none Musculoskeletal Musculoskeletal: Reports other Details: rib pain from fractures, hurts to take deep breath or cough ; Denies muscle spasms Integumentary Integumentary: Denies rash or wounds Neurologic Neurologic: Reports confusion and memory loss; Denies focal weakness Psychiatric Psychiatric: Reports anxiety, depression and other Details: dementia ; Denies hallucinations Endocrine Endocrinology: Reports none Hematologic/Lymphatic Hematologic/Lymphatic: Reports none Allergic/Immunologic Allergic/Immunologic: Reports none Physical Exam Const alert and no apparent distress General Appearance: cooperative Orientation / Consciousness: oriented to person Nutritional Appearance: obese HEENT normocephalic and head/scalp atraumatic Head and Scalp: other Other Details: multiple chronic skin lesions, noninfected Eyes General Eye: normal appearance of both eyes Neck supple General: trachea midline Chest Chest: symmetrical chest wall rise and tenderness Resp Resp Narrative: splinting Effort and Inspection: able to speak in complete sentences; Negative for tachypneic Auscultation: clear to auscultation bilaterally and diminished lung sounds Cardio regular rate, S1 normal heart sound and S2 normal heart sound GI normal to inspection, nondistended, normoactive bowel sounds Skin no wounds Neuro Neuro Narrative: no focal deficits Psych cooperative Speech: normal speech Thought Process: confused Memory / Cognition: memory grossly impaired Impaired Memory Type(s): Positive for other (dementia)
[2020-12-05] MEDS: Insulin Lispro 100 UNIT/ML INSULN.PEN SC (11:16)
[2020-12-05] MEDS: Donepezil HCl 5 MG Tablet PO (11:17)
[2020-12-05 11:36] LABS: Bedside Glucose 246 mg/dL (70-110)
--- NOTE | 2020-12-05 11:38 | DS.PCM_ITS ---
Providers Date of Admission: 12/03/20 Primary Care Physician: Dr. Lazarus Billings MD Consultations 12/03/20 16:09 Consult: Hospice / Palliative Care Routine Consulting Provider: [facility] Reason for Consult: Dementia-would benefit from palliative services--> doubt hospice ready EMERGENT Consult: No MD Notified: Yes Date Notified:: 12/04/20 Time Notified: 08:46 Method of Notification: office Reason For Visit: PNEUMONIA Diagnosis Discharge Diagnosis (1) Shortness of breath: Status: Acute Code(s): R06.02 - Shortness of breath (2) Acute respiratory insufficiency: Status: Acute Code(s): R06.89 - Other abnormalities of breathing (3) Left rib fracture: Status: Acute Code(s): S22.32XA - Fracture of one rib, left side, initial encounter for closed fracture (4) Pneumonia: Status: Acute Code(s): J18.9 - Pneumonia, unspecified organism (5) Emphysema, unspecified: Status: Acute Code(s): J43.9 - Emphysema, unspecified (6) Atherosclerosis of coronary artery bypass graft without angina pectoris: Status: Chronic Code(s): I25.810 - Atherosclerosis of coronary artery bypass graft(s) without angina pectoris Qualifiers: [place] vs. transplanted heart: [place] heart Qualified Code(s): I25.810 - Atherosclerosis of coronary artery bypass graft(s) without angina pectoris (7) Presence of stent in coronary artery: Status: Chronic Code(s): Z95.5 - Presence of coronary angioplasty implant and graft (8) History of DVT (deep vein thrombosis): Status: Acute Code(s): Z86.718 - Personal history of other venous thrombosis and embolism (9) Old myocardial infarction: Status: Acute Code(s): I25.2 - Old myocardial infarction (10) Paroxysmal atrial fibrillation: Status: Chronic Code(s): I48.0 - Paroxysmal atrial fibrillation (11) Type 2 diabetes mellitus: Status: Acute Code(s): E11.9 - Type 2 diabetes mellitus without complications (12) Abdominal aortic aneurysm (AAA): Status: Chronic Code(s): I71.4 - Abdominal aortic aneurysm, without rupture (13) HLD (hyperlipidemia): Status: Chronic Code(s): E78.5 - Hyperlipidemia, unspecified Qualifiers: Hyperlipidemia type: unspecified Qualified Code(s): E78.5 - Hyperlipidemia, unspecified (14) Essential hypertension: Status: Chronic Code(s): I10 - Essential (primary) hypertension (15) COPD (chronic obstructive pulmonary disease): Status: Chronic Code(s): J44.9 - Chronic obstructive pulmonary disease, unspecified (16) Glaucoma: Status: Acute Code(s): H40.9 - Unspecified glaucoma (17) BPH (benign prostatic hyperplasia): Status: Acute Code(s): N40.0 - Benign prostatic hyperplasia without lower urinary tract symptoms (18) CAD (coronary artery disease): Status: Acute Code(s): I25.10 - Atherosclerotic heart disease of [place] coronary artery without angina pectoris Medications at Discharge Home Medications nitroglycerin 0.4 mg sublingual tablet 0.4 mg SUBLINGUAL Q5M PRN 09/17/17 dutasteride 0.5 mg capsule 0.5 mg PO QDAY 09/18/17 brimonidine 0.2 % eye drops 1 drp OPHTHALMIC BID ml 10/30/17 latanoprost 0.005 % eye drops 1 drp OPHTHALMIC QPM 10/30/17 timolol 0.5 % eye drops 1 drp OPHTHALMIC BID 10/30/17 cholecalciferol (vitamin D3) 25 mcg (1,000 unit) tablet 1,000 unit PO DAILY 10/26/18 atorvastatin 40 mg tablet 40 mg PO QHS #90 tab 10/29/19 diltiazem HCl 120 mg capsule,extended release 24 hr 120 mg PO DAILY #90 cap 08/22/20 metoprolol tartrate 50 mg tablet 50 mg PO BID #180 ea 08/22/20 apixaban 5 mg tablet See Rx Instructions .ROUTE .COMPLEX #180 tablet 10/17/20 Trelegy Ellipta 1 inh INHALATION DAILY 12/03/20 Tresiba FlexTouch U-100 14 unit SUBCUT DAILY 12/03/20 albuterol sulfate 2.5 mg INHALATION DAILY 12/03/20 donepezil 5 mg PO 1200 12/03/20 furosemide 40 mg PO QODAY 12/03/20 potassium chloride 20 meq PO BID 12/03/20 quetiapine 25 mg PO 1700 12/03/20 acetaminophen [Tylenol] 650 mg PO Q6H PRN PRN #0 tab 12/05/20 albuterol sulfate 2.5 mg INHALATION Q2H PRN PRN #0 ml 12/05/20 guaifenesin [Mucus Relief ER] 1,200 mg PO BID #0 tab 12/05/20 ipratropium-albuterol 3 ml INHALATION Q4H.RT #0 ml 12/05/20 levofloxacin 500 mg PO Q24H #5 tab 12/05/20 nut.tx.gluc intol,lf,soy-fiber [Glucerna 1.2 Pankaj] 120 ml PO 4X/DAY #0 ml 12/05/20 Hospital Course Operations None Procedures None Summary of Care Provided Minutes Spent on Discharge: 41 Hospital Course: Mr. URIBE, is a 85 M who presented to the emergency department [facility] on 12/03/2020 with the chief complaint of shortness of breath.? Approximately 8 days prior to admission Mr. Uribe fell and broke his left seventh rib. He subsequently developed increased shortness of breath and a moist cough that is rhonchorous sounding.? His was at the bedside and gave his history as he has Alzheimer's type dementia and at baseline is only alert and oriented to self.? She stated his fall resulted from his feet getting tangled up while he was ambulating.? He lives at home with her and she is his primary caregiver.? It sounds as if he is been declining some.? She reported that his p.o. intake has been adequate and denied any signs of aspiration with oral intake.? In the emergency department he was afebrile, his heart rate was in the 60s, his blood pressure was within normal limits and after being placed on supplemental oxygen his oxygen saturations are 96 to 97% with a normal respiratory rate.? Upon presentation his oxygen saturation was 88-90% on room air.? His CBC was overall unremarkable with no elevated white count although he did have a mild left shift with a neutrophilia.? His BMP is unremarkable as well.? He had a normal lactic acid.? He had a normal troponin.? His UA showed some hematuria but no signs of infection.? His EKG was unremarkable.? His chest x-ray showed an interstitial left lung base infiltrate and COPD with bullous emphysema.? He was treated in the emergency department supplemental oxygen, IV fluids, azithromycin, and ceftriaxone.? He was admitted to medical floor and treated with azithromycin and ceftriaxone. Sputum cultures were obtained and resulted with growth and a gram-negative kelli identification and sensitivity were pending at discharge. Patient will be continued on antibiotics with Levaquin for total of 7 days. He was also seen by palliative care during his hospitalization and they will continue to follow him at the nursing facility and to facilitate care after discharge back to home. Discharge diagnoses Acute hypoxic respiratory insufficiency secondary to community-acquired pneumonia Subacute left seventh rib fracture Recent fall Alzheimer's type dementia COPD Bullous emphysema PAF CAD HPL HTN glaucoma BPH Prostate cancer DM-2 History of AAA History of DVT Physical Exam Const no apparent distress Constitutional Narrative: Elderly demented white male, lying in bed sleeping but awakens easily, on 2 L nasal cannula for supplemental oxygen, appears comfortable General Appearance: cooperative; Negative for uncooperative Orientation / Consciousness: confused and disoriented; Negative for lethargic Exam Limitations: other limitations Nutritional Appearance: underweight HEENT normocephalic, head/scalp atraumatic, moist oral mucous membranes and oropharynx normal; Negative for hearing grossly normal bilaterally or dentition normal Eyes PERRL, EOMs intact bilaterally and conjunctivae normal Neck no lymphadenopathy, supple, no JVD and no carotid bruits Resp normal respiratory effort, no retractions and no use of accessory muscles Resp Narrative: Diminished diffusely Auscultation: rhonchi right lower (Improved since yesterday); Negative for crackles, rales or wheezes Cardio regular rate, regular rhythm, S1 normal heart sound, S2 normal heart sound, no murmurs, no rub, no gallops, no clicks and no JVD GI normal to inspection, nondistended, normoactive bowel sounds, soft to palpation, non-tender and non-distended; Negative for hepatosplenomegaly Auscultation: Negative for hyperactive bowel sounds or hypoactive bowel sounds Palpation: Negative for tender, guarding or hernia Extremity normal to inspection, full ROM and no clubbing, cyanosis or edema Skin no rashes or lesions noted, no wounds, skin turgor normal, no jaundice, no petechiae and no mottling Neuro CN's II-XII intact bilaterally, moves all extremities and no focal motor de ficits Neuro Narrative: Oriented only to self-this is baseline Sensorium / Orientation: awake, alert and oriented to person; Negative for oriented to place or oriented to time Speech: speech normal Psych affect normal Psych Narrative: Pleasantly confused ABG / Lab / Microbiology Data Result Diagrams: 12/04/20 05:58 12/04/20 05:58 Laboratory: Laboratory Results - last 24 hr 12/04/20 12/04/20 12/05/20 15:44 21:23 05:55 POC Glucose 72 130 H 99 12/05/20 11:10 POC Glucose 246 H Microbiology: Microbiology 12/03/20 13:05 Blood Culture - Preliminary Blood Culture (Wb) - Left Forearm No growth in 48 hours. 12/03/20 13:50 Blood Culture - Preliminary Blood Culture (Wb) - Right Wrist No growth in 48 hours. 12/04/20 14:40 Gram Stain - Final Sputum, Expectorated/Coughed Respiratory Culture - Preliminary Gram negative kelli 12/03/20 14:10 Urine Culture - Preliminary Urine, Clean Catch Culture exhibits no growth. Microbiology 12/03/20 13:05 Blood Culture (Wb) - Left Forearm Blood Culture - Preliminary No growth in 48 hours. 12/03/20 13:50 Blood Culture (Wb) - Right Wrist Blood Culture - Preliminary No growth in 48 hours. 12/04/20 14:40 Sputum, Expectorated/Coughed Gram Stain - Final 12/04/20 14:40 Sputum, Expectorated/Coughed Respiratory Culture - Preliminary Gram negative kelli 12/03/20 14:10 Urine, Clean Catch Urine Culture - Preliminary Culture exhibits no growth. 12/03/20 20:30 Urine, Clean Catch Legionella Antigen - Final 12/03/20 20:30 Urine, Clean Catch Streptococcus pneumoniae Antigen (M - Final 12/03/20 16:51 Mucosa - Nose Respiratory Panel (PCR) - Final D/C Instructions Discharge Diet: No restrictions Weight Bearing Status: Weight bearing as tolerated Meaningful Use Info Meaningful Use Diagnoses (Choose all that apply): None applicable Discharge Plan Admission Admit Date/Time: 12/03/20 15:04 Primary Reason for Your Visit: Pneumonia Attending Provider: Tamera Noriega Primary Care Provider: Lazarus Billings Chi Consulting Providers: Cecelia Cadena ; Scott Duran ; Adrianne Duarte ; Gypsy Colon ; Cheryle Mena ; Angélica Doty CHILD DEVELOPMENT ASSOCIATE TEACHER Discharge Orders/Prescriptions Prescriptions: New acetaminophen [Tylenol] 325 mg Tablet 650 mg PO Q6H PRN PRN (Reason: Pain Score 1-10/Temp > 100.7 F) Qty: 0 RF: 0 albuterol sulfate 2.5 mg /3 mL (0.083 %) Solution For Nebulization 2.5 mg inhalation Q2H PRN PRN (Reason: Shortness of Breath/Wheezing) Qty: 0 RF: 0 Glucerna 1.2 Pankaj 0.06-1.2 gram-kcal/mL Liquid 120 ml PO 4X/DAY Qty: 0 RF: 0 Mucus Relief ER 1,200 mg Tablet Extended Release 12hr 1,200 mg PO BID Qty: 0 RF: 0 ipratropium-albuterol 0.5 mg-3 mg(2.5 mg base)/3 mL Solution For Nebulization 3 ml inhalation Q4H.RT Qty: 0 RF: 0 levofloxacin 500 mg tablet 500 mg PO Q24H Qty: 5 RF: 0 Continued latanoprost 0.005 % drops 1 drp OPHTHALMIC QPM RF: 0 timolol 0.5 % drops 1 drp OPHTHALMIC BID RF: 0 brimonidine 0.2 % drops 1 drp OPHTHALMIC BID RF: 0 dutasteride 0.5 mg capsule 0.5 mg PO QDAY RF: 0 nitroglycerin 0.4 mg tablet, sublingual 0.4 mg SUBLINGUAL Q5M PRN (Reason: Chest Pain) RF: 0 cholecalciferol (vitamin D3) 1,000 unit tablet 1,000 unit PO DAILY RF: 0 Tresiba FlexTouch U-100 100 unit/mL (3 mL) insulin pen 14 unit SUBCUT DAILY RF: 0 quetiapine 25 mg tablet 25 mg PO 1700 RF: 0 donepezil 5 mg tablet 5 mg PO 1200 RF: 0 albuterol sulfate 2.5 mg /3 mL (0.083 %) solution for nebulization 2.5 mg inhalation DAILY RF: 0 Trelegy Ellipta 100-62.5-25 mcg blister with device 1 inh INHALATION DAILY RF: 0 furosemide 40 mg tablet 40 mg PO QODAY RF: 0 potassium chloride 20 mEq tablet extended release 20 meq PO BID RF: 0 atorvastatin 40 mg tablet 40 mg PO QHS Qty: 90 RF: 3 diltiazem HCl 120 mg capsule,extended release 24hr 120 mg PO DAILY Qty: 90 RF: 3 metoprolol tartrate 50 mg tablet 50 mg PO BID Qty: 180 RF: 3 apixaban [Eliquis] 5 mg tablet See Rx Instructions .ROUTE .COMPLEX Qty: 180 RF: 4 Referrals / Follow Up: Lazarus Billings Chi, MD [Primary Care Provider] - Disposition Disposition (needs filled in before D/C Order can be placed): Longterm Facility Visit Charges Inpatient E&M: 09435 SNF Disch >30 Min
--- NOTE | 2020-12-05 12:52 | TREXTCAR_ITS ---
Diet 12/03/20 16:09 Diet: Consistent Carb - Calorie Controlled Food consistency:: Regular Liquid Consistency:: Regular/Thin Diet Comments: fortified foods How many daily calories?: 1800 calorie Problem/Diagnosis (1) Shortness of breath: Status: Acute (2) Acute respiratory insufficiency: Status: Acute (3) Left rib fracture: Status: Acute (4) Pneumonia: Status: Acute (5) Emphysema, unspecified: Status: Acute (6) Atherosclerosis of coronary artery bypass graft without angina pectoris: Status: Chronic Comment: ACS Multi link stenting of prox RCA and angioplasty of prox PDA 04/27/97; PTCA /Stent to SVG to the RCA 04/25/10; CABG x2- HUSAIN to LAD, SVG to PDA 07/27/97 (7) Presence of stent in coronary artery: Status: Chronic Comment: ACS Multi link stenting of prox RCA and angioplasty of prox PDA 04/27/97; PTCA/Stent to SVG to the RCA 04/25/10 (8) History of DVT (deep vein thrombosis): Status: Acute Comment: bilateral LE (9) Old myocardial infarction: Status: Acute (10) Paroxysmal atrial fibrillation: Status: Chronic (11) Type 2 diabetes mellitus: Status: Acute (12) Abdominal aortic aneurysm (AAA): Status: Chronic (13) HLD (hyperlipidemia): Status: Chronic (14) Essential hypertension: Status: Chronic (15) COPD (chronic obstructive pulmonary disease): Status: Chronic (16) Glaucoma: Status: Acute (17) BPH (benign prostatic hyperplasia): Status: Acute (18) CAD (coronary artery disease): Status: Acute Allergies/Procedures Done in Hospital Allergies Iodinated Contrast Media [CONTRASTS] Allergy (Verified 12/09/19 14:22) Hives amoxicillin [From Augmentin] Adverse Reaction (Verified 12/09/19 14:22) Upset Stomach clavulanic acid [From Augmentin] Adverse Reaction (Verified 12/09/19 14:22) Upset Stomach Type of Care/Length of Stay Estimated LOS: Convalescent Care Less Than 30 days Type of Care Needed: Skilled Rehab Potential: Fair Prognosis: Fair Additional Orders/Day of Discharge Day of Discharge: 12/05/20 Dietary and Speech Recommendations Dietitian Recommendations/Changes: Will increase ONS at medpass to 4x/day Will provide fortified foods at meals for increased nutrition if consumed. Discharge Plan Admission Admit Date/Time: 12/03/20 15:04 Primary Reason for Your Visit: Pneumonia Attending Provider: Tamera Noriega Primary Care Provider: Lazarus Billings Chi Consulting Providers: Cecelia Cadena ; Scott Duran ; Adrianne Duarte ; Gypsy Colon ; Cheryle Mena ; Angélica Doty GLOBAL SECURITY ARCHITECT Discharge Orders/Prescriptions Prescriptions: New acetaminophen [Tylenol] 325 mg Tablet 650 mg PO Q6H PRN PRN (Reason: Pain Score 1-10/Temp > 100.7 F) Qty: 0 RF: 0 albuterol sulfate 2.5 mg /3 mL (0.083 %) Solution For Nebulization 2.5 mg inhalation Q2H PRN PRN (Reason: Shortness of Breath/Wheezing) Qty: 0 RF: 0 Glucerna 1.2 Pankaj 0.06-1.2 gram-kcal/mL Liquid 120 ml PO 4X/DAY Qty: 0 RF: 0 Mucus Relief ER 1,200 mg Tablet Extended Release 12hr 1,200 mg PO BID Qty: 0 RF: 0 ipratropium-albuterol 0.5 mg-3 mg(2.5 mg base)/3 mL Solution For Nebulization 3 ml inhalation Q4H.RT Qty: 0 RF: 0 levofloxacin 500 mg tablet 500 mg PO Q24H Qty: 5 RF: 0 Continued latanoprost 0.005 % drops 1 drp OPHTHALMIC QPM RF: 0 timolol 0.5 % drops 1 drp OPHTHALMIC BID RF: 0 brimonidine 0.2 % drops 1 drp OPHTHALMIC BID RF: 0 dutasteride 0.5 mg capsule 0.5 mg PO QDAY RF: 0 nitroglycerin 0.4 mg tablet, sublingual 0.4 mg SUBLINGUAL Q5M PRN (Reason: Chest Pain) RF: 0 cholecalciferol (vitamin D3) 1,000 unit tablet 1,000 unit PO DAILY RF: 0 Tresiba FlexTouch U-100 100 unit/mL (3 mL) insulin pen 14 unit SUBCUT DAILY RF: 0 quetiapine 25 mg tablet 25 mg PO 1700 RF: 0 donepezil 5 mg tablet 5 mg PO 1200 RF: 0 albuterol sulfate 2.5 mg /3 mL (0.083 %) solution for nebulization 2.5 mg inhalation DAILY RF: 0 Trelegy Ellipta 100-62.5-25 mcg blister with device 1 inh INHALATION DAILY RF: 0 furosemide 40 mg tablet 40 mg PO QODAY RF: 0 potassium chloride 20 mEq tablet extended release 20 meq PO BID RF: 0 atorvastatin 40 mg tablet 40 mg PO QHS Qty: 90 RF: 3 diltiazem HCl 120 mg capsule,extended release 24hr 120 mg PO DAILY Qty: 90 RF: 3 metoprolol tartrate 50 mg tablet 50 mg PO BID Qty: 180 RF: 3 apixaban [Eliquis] 5 mg tablet See Rx Instructions .ROUTE .COMPLEX Qty: 180 RF: 4 Referrals / Follow Up: Lazarus Billings Chi, MD [Primary Care Provider] - Disposition Disposition (needs filled in before D/C Order can be placed): Shelter Facility
--- NOTE | 2020-12-05 13:42 | CASEMGMT ---
Social Work Note LAINA faxed completed discharge paperwork to [facility] including transfer to extended care facility, signed medication list, any scripts, COVID test, COVID tool, pt's vaccination card and HENS. Original in SNF Folder and copy on pt's chart. LAINA completed convalescent 7000 in HENS. Original in SNF folder and copy on pt's chart. LAINA spoke with RN, pt will need to be on Oxygen 2 liters and can be transport via cot. LAINA accessed trip assist and arranged transportation via cot for 2:30pm. Transportation form completed and placed on SNF folder and copy on pt's chart. LAINA updated RN. LAINA placed a call to Lakeshia at [facility] and updated her on transportation time. LAINA placed a call to pt's Nadira and updated her on transportation time. Plan: [facility] today with [facility] transporting pt via cot at 2:30pm Brenda Mejia FLOOR COVERING LAYER, HOT WOUND SPRING PRODUCTION SUPERVISOR
--- NOTE | 2020-12-05 14:39 | NURSING ---
pt left via ambulance
== END 2020-12-05 14:50 | disposition skilled nursing facility (03) | DRG 194 ==
LOC: ED 14:44 → MS3 16:03
PROVIDERS: Admitting Provider Internal Medicine; Emergency Provider Emergency Medicine; PCP Family Medicine Geriatric Medicine; Referring Provider Internal Medicine; Visit Provider Internal Medicine
DX: J18.9 Pneumonia, unspecified organism (principal); I25.810 Atherosclerosis of coronary artery bypass graft(s) without angina pectoris; I25.10 Atherosclerotic heart disease of native coronary artery without angina pectoris; J43.9 Emphysema, unspecified; R09.02 Hypoxemia; I48.0 Paroxysmal atrial fibrillation; E11.9 Type 2 diabetes mellitus without complications; I10 Essential (primary) hypertension; M06.9 Rheumatoid arthritis, unspecified; E78.5 Hyperlipidemia, unspecified; S22.32XD Fracture of one rib, left side, subsequent encounter for fracture with routine healing; W19.XXXD Unspecified fall, subsequent encounter; H40.9 Unspecified glaucoma; G47.33 Obstructive sleep apnea (adult) (pediatric); G30.9 Alzheimer's disease, unspecified; F02.80 Dementia in other diseases classified elsewhere, unspecified severity, without behavioral disturbance, psychotic disturbance, mood disturbance, and anxiety; N40.0 Benign prostatic hyperplasia without lower urinary tract symptoms; Z79.01 Long term (current) use of anticoagulants; Z79.51 Long term (current) use of inhaled steroids; Z79.4 Long term (current) use of insulin; Z79.899 Other long term (current) drug therapy; Z91.81 History of falling; I25.2 Old myocardial infarction; Z91.041 Radiographic dye allergy status; Z85.46 Personal history of malignant neoplasm of prostate; Z86.718 Personal history of other venous thrombosis and embolism; Z87.891 Personal history of nicotine dependence; Z95.5 Presence of coronary angioplasty implant and graft
CPT/HCPCS: 36415; 71045; 80048; 80053; 81001; 82962; 83605; 83735; 84100; 84484; 85025; 85610; 85730; 87040; 87070; 87077; 87086; 87186; 87205; 87426; 87449; 87633; 87641; 93005; 94640; 94667; 94668; 97110; 97116; 97162; 97166; 97530; 97802; 99251; 99284; J7030; A4216; G0463; J0696

== ENCOUNTER → 2021-02-13 15:15 | Outpatient (CLI) | payer MEDICARE, SELFPAY ==
[2020-12-03 16:10] VITALS: BMI 19.1
[2021-02-13 17:12] LABS: Absolute Lymphocyte Count 1.27 X10^3/uL (0.83-4.51); Absolute Neutrophil Count 3.8 X10^3/uL (2.0-7.7); Basophil# 0.03 X10^3/uL; Basophil% 0.5 % (0-1); Eosinophil# 0.25 X10^3/uL; Eosinophils% 4.2 % (0-5); Hematocrit 42.3 % (40-54); Hemoglobin 13.5 g/dL (13.0-16.5); Lymphocyte # 1.27 X10^3/ul (0.83-4.51); Lymphocyte % 21.5 % (19-41); Mean Corp Hgb Conc 31.9 g/dL (32-36); Mean Corpuscular Hgb 30.7 pg (27.0-32.0); Mean Corpuscular Volume 96.1 fL (80-94); Monocyte# 0.53 X10^3/uL; NRBC Flagged by Analyzer 0 % (0-5); Neutrophil # 3.81 X10^3/uL (2.7-7.7); Neutrophil % 64.6 % (47-70); Platelet Count 248 K/mm3 (150-450); RBC Distribution Width CV 13.2 % (11.6-14.6); RBC Distribution Width SD 46.8 fl (35.1-43.9); White Blood Count 5.9 K/mm3 (4.4-11.0)
[2021-02-13 17:21] LABS: ALB/GLOB Ratio 0.9 RATIO (0.9-2.4); AST(SGOT) 12 U/L (15-37); Alanine Aminotransfer ALT/SGPT 15 U/L (16-61); Albumin, Serum 3.1 g/dL (3.2-5.0); Alkaline Phosphatase 87 U/L (45-117); Anion Gap 2 (5-15); BUN 15 mg/dL (7-18); BUN/Creat Ratio 20.1 RATIO (10-20); Calcium,Total 8.5 mg/dL (8.5-10.1); Chloride 101 mmol/L (98-107); Creatinine, Serum 0.75 mg/dL (0.70-1.30); EST Glomerular Filtration Rate 105 mL/min (>60); Est Glom Filt Rate - Afr Amer 128 mL/min (>60); Globulin 3.3 g/dL (2.2-4.2); Glucose 136 mg/dL (74-106); Potassium 4.5 mmol/L (3.5-5.1); Protein, Total 6.4 g/dL (6.4-8.2); Sodium Level 138 mmol/L (136-145)
[2021-02-13 17:43] LABS: Vitamin D,25 Hydroxy 50.2 ng/mL
== END ==
PROVIDERS: PCP Family Medicine Geriatric Medicine; Visit Provider Family Medicine Geriatric Medicine
DX: E11.9 Type 2 diabetes mellitus without complications (principal); E55.9 Vitamin D deficiency, unspecified; I10 Essential (primary) hypertension
CPT/HCPCS: 36415; 80053; 82306; 84443; 85025

== ENCOUNTER → 2021-02-28 11:37 | Outpatient (CLI) | payer MEDICARE, SELFPAY ==
[2021-02-28 14:51] LABS: Color, Urine Yellow (Yellow); Glucose, Dipstick 1000 mg/dl (Normal); Ketone-Dipstick 5 mg/dl (Negative); Leukocyte Esterase-Dipstick Negative /ul (Negative); Nitrite-Dipstick Negative (Negative); Occult Blood-Urine Negative /ul (Negative); Protein-Dipstick Negative (Negative); Urine Bilirubin Dipstick Negative (Negative); Urine Clarity Clear (Clear); Urine Urobilinogen Normal (Normal)
== END ==
PROVIDERS: PCP Family Medicine Geriatric Medicine; Referring Provider Family Medicine Geriatric Medicine; Visit Provider Family Medicine Geriatric Medicine
DX: R41.89 Other symptoms and signs involving cognitive functions and awareness (principal)
CPT/HCPCS: 81002

== ENCOUNTER → 2021-03-12 14:50 | Outpatient (CLI) | payer MEDICARE, SELFPAY ==
[2021-03-12 17:04] LABS: Absolute Lymphocyte Count 1.05 X10^3/uL (0.83-4.51); Absolute Neutrophil Count 3.5 X10^3/uL (2.0-7.7); Basophil# 0.04 X10^3/uL; Basophil% 0.8 % (0-1); Eosinophil# 0.22 X10^3/uL; Eosinophils% 4.1 % (0-5); Hematocrit 42.7 % (40-54); Hemoglobin 13.6 g/dL (13.0-16.5); Lymphocyte # 1.05 X10^3/ul (0.83-4.51); Lymphocyte % 19.8 % (19-41); Mean Corp Hgb Conc 31.9 g/dL (32-36); Mean Corpuscular Hgb 31.1 pg (27.0-32.0); Mean Corpuscular Volume 97.5 fL (80-94); Mean Platelet Vol. 9.9 fl (6.2-12.0); Monocyte# 0.51 X10^3/uL; Monocyte% 9.6 % (0-10); NRBC Flagged by Analyzer 0 % (0-5); Neutrophil # 3.47 X10^3/uL (2.7-7.7); Neutrophil % 65.3 % (47-70); Platelet Count 208 K/mm3 (150-450); RBC Distribution Width CV 13.2 % (11.6-14.6); RBC Distribution Width SD 47.8 fl (35.1-43.9); Red Blood Count 4.38 M/mm3 (4.6-6.2); White Blood Count 5.3 K/mm3 (4.4-11.0)
[2021-03-12 17:50] LABS: Vitamin D,25 Hydroxy 53.8 ng/mL
[2021-03-12 17:53] LABS: ALB/GLOB Ratio 0.9 RATIO (0.9-2.4); AST(SGOT) 14 U/L (15-37); Alanine Aminotransfer ALT/SGPT 17 U/L (16-61); Albumin, Serum 2.9 g/dL (3.2-5.0); Alkaline Phosphatase 75 U/L (45-117); Anion Gap 4 (5-15); BUN 11 mg/dL (7-18); BUN/Creat Ratio 16.7 RATIO (10-20); Calcium,Total 8.8 mg/dL (8.5-10.1); Chloride 102 mmol/L (98-107); Creatinine, Serum 0.66 mg/dL (0.70-1.30); EST Glomerular Filtration Rate 122 mL/min (>60); Est Glom Filt Rate - Afr Amer 147 mL/min (>60); Globulin 3.2 g/dL (2.2-4.2); Glucose 121 mg/dL (74-106); Potassium 4.5 mmol/L (3.5-5.1); Protein, Total 6.1 g/dL (6.4-8.2); Sodium Level 140 mmol/L (136-145); Thyroid Stim Hormone (TSH) 3.36 uIU/mL (0.358-3.74); Uric Acid 4.3 mg/dL (3.5-7.2)
== END ==
PROVIDERS: PCP Family Medicine Geriatric Medicine; Referring Provider Family Medicine Geriatric Medicine; Visit Provider Family Medicine Geriatric Medicine
DX: I10 Essential (primary) hypertension (principal); E11.9 Type 2 diabetes mellitus without complications; E55.9 Vitamin D deficiency, unspecified; M10.9 Gout, unspecified
CPT/HCPCS: 36415; 80053; 82306; 84443; 84550; 85025